=== PATIENT | female | born 2000 | race Caucasian/White ===

== ENCOUNTER 2019-11-05 13:56 | Emergency (ER) | payer OTHER, MEDICAID ==
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
--- NOTE | 2019-11-05 16:34 | US ---
1st trimester obstetrical ultrasound: Multiple real-time images were obtained transabdominally. Comparison: No prior study for current . Dates: LMP: LMP given as 08/30/19, JUNE 06/05/20, gestational age 9 weeks 4 days Current ultrasound: JUNE 06/06/20, gestational age 9 weeks 3 days Single intrauterine gestation is seen. Amniotic fluid volume is normal. Embryo is identified. Yolk sac is present. Very minimal subchorionic hemorrhage is noted. Ovaries are felt to be within normal limits. Cyst is noted within the vaginal canal measuring 2.8 cm in greatest size which is felt to be benign. Measurements: [place]-rump length: 2.62 cm - 9 weeks 3 days Heart rate: 161 bpm Impression: 1. Single intrauterine gestation. Dates as noted above. 2. Minimal subchorionic hemorrhage which will likely be incidental. 3. Vaginal cyst which is believed to be benign. 3. No other complicating process is seen. Diagnostic code #2 This report was dictated in [place] Standard Time
== END 2019-11-05 17:00 | disposition home or self-care (01) ==
LOC: JD.ED 13:56
DX: O41.8X10 Other specified disorders of amniotic fluid and membranes, first trimester, not applicable or unspecified (principal); O46.8X1 Other antepartum hemorrhage, first trimester; Z3A.09 9 weeks gestation of pregnancy; V89.2XXA Person injured in unspecified motor-vehicle accident, traffic, initial encounter
CPT/HCPCS: 36415; 76801; 76801-26; 84702; 85025; 86900; 86901; 99282; 99285-25

== ENCOUNTER 2019-12-01 05:58 | Emergency (ER) | payer MEDICAID ==
--- NOTE | 2019-12-01 06:42 | EDM.PDOC ---
<Adán Dang - Last Filed: 12/01/19 06:56> ED HPI GENERAL MEDICAL PROBLEM - General Chief Complaint: General Stated Complaint: 13 WEEKS PREG BACK PAIN FEVER VOMITTING Time Seen by Provider: 12/01/19 06:30 Source of Information: Reports: Patient History Limitations: Reports: No Limitations - History of Present Illness INITIAL COMMENTS - FREE TEXT/NARRATIVE: This is a 19-year-old female. Onset yesterday around 4 PM with nausea vomiting and diarrhea. She thinks she has had a fever up to 101 as well and some chills. She complains of some nasal congestion and a dry cough and she has a sore throat. She has not gotten a flu shot. She is 13 weeks but she denies any vaginal bleeding or discharge. She also complains of pain in her right flank and lower back that goes down into both of her legs but she has no history of back problems or back injury. Still complains of a headache that is more of a pounding type headache. She has not been eating or drinking much for the last 12 hours. She does have a history of frequent UTIs but she says she does not think she has one. She denies any blood in the vomitus or the stool. The patient's OB doctor is Dr. Samuels. She states that her has had no complications thus far. 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 Denies: Wheezing Cardiovascular: Reports: No Symptoms Endocrine: Reports: No Symptoms GI/Abdominal: Reports: Diarrhea, Nausea, Vomiting, Other (Does have some abdominal cramping with the nausea and vomiting and diarrhea but otherwise no abdominal pain) : Denies: Dysuria, Frequency Musculoskeletal: Reports: Back Pain Skin: Reports: No Symptoms Neurological: Reports: Headache Psychiatric: Reports: No Symptoms Hematologic/Lymphatic: Reports: No Symptoms ED EXAM, GENERAL - Physical Exam Exam: See Below Exam Limited By: No Limitations General Appearance: Alert, WD/WN, No Apparent Distress Eye Exam: Bilateral Eye: Normal Inspection Ears: Normal External Exam, Normal Canal, Normal TMs Nose: Normal Inspection Throat/Mouth: Normal Inspection, Normal Lips, Normal Oropharynx, Normal Voice, No Airway Compromise Head: Normocephalic Neck: Supple, Other (No nuchal rigidity) Respiratory/Chest: No Respiratory Distress, Lungs Clear, Normal Breath Sounds Cardiovascular: Regular Rate, Rhythm, No Murmur, Tachycardia GI/Abdominal: Soft, Other (Sounds are positive but they are decreased, she does not appear to have any tenderness in the suprapubic area or the right or left lower quadrant or upper abdomen. She does complain of some soreness but no severe pain or rebound is elicited) (Female) Exam: Deferred Back Exam: Full Range of Motion, Other (Will to bend forward and lie down with no difficulty, she does complain of some soreness in the right lower back area on palpation but complains of the pain going across her lower back and down her legs across the anterior thighs to the knees. She seems to be very mobile despite this discomfort.) Extremities: Normal Inspection, Normal Range of Motion Neurological: Alert, Oriented Psychiatric: Normal Affect, Normal Mood Skin Exam: Warm, Dry Course - Vital Signs Last Recorded V/S: Last Vital Signs Temp 99.1 F 12/01/19 06:06 Pulse 104 H 12/01/19 06:06 Resp 20 12/01/19 06:06 BP 114/67 12/01/19 06:06 Pulse Ox 100 12/01/19 06:06 - Orders/Labs/Meds Orders: Active Orders 24 hr Category Date Time Status HYDROmorphone [Dilaudid] Med 12/01/19 08:41 Once 0.5 mg IVPUSH ONETIME ONE Sodium Chloride 0.9% [Normal Saline] 1,000 ml Med 12/01/19 06:45 Active IV ASDIRECTED Medication Orders Sodium Chloride (Normal Saline) 1,000 mls @ 1,000 mls/hr IV ASDIRECTED KEITH Last Admin: 12/01/19 06:55 Dose: 1,000 mls/hr Labs: Laboratory Tests 12/01/19 12/01/19 12/01/19 Range/Units 06:53 06:53 06:53 WBC 7.59 (3.98-10.04) K/mm3 RBC 4.00 (3.98-5.22) M/mm3 Hgb 11.7 (11.2-15.7) gm/dl Hct 35.7 (34.1-44.9) % MCV 89.3 (79.4-94.8) fl MCH 29.3 (25.6-32.2) pg MCHC 32.8 (32.2-35.5) g/dl RDW Std Deviation 43.6 (36.4-46.3) fL Plt Count 219 (182-369) K/mm3 MPV 9.0 L (9.4-12.3) fl Neut % (Auto) 82.9 H (34.0-71.1) % Lymph % (Auto) 4.6 L (19.3-51.7) % Richardson % (Auto) 12.0 (4.7-12.5) % Eos % (Auto) 0 L (0.7-5.8) Baso % (Auto) 0.1 (0.1-1.2) % Neut # (Auto) 6.29 H (1.56-6.13) K/mm3 Lymph # (Auto) 0.35 L (1.18-3.74) K/mm3 Richardson # (Auto) 0.91 H (0.24-0.36) K/mm3 Eos # (Auto) 0.00 L (0.04-0.36) K/mm3 Baso # (Auto) 0.01 (0.01-0.08) K/mm3 Manual Slide Review Abnormal smear Sodium 134 L (136-145) mEq/L Potassium 3.8 (3.5-5.1) mEq/L Chloride 102 (98-107) mEq/L Carbon Dioxide 22 (21-32) mEq/L Anion Gap 13.8 (5-15) BUN 5 L (7-18) mg/dL Creatinine 0.6 (0.55-1.02) mg/dL Est Cr Clr Drug Dosing 133.46 mL/min Estimated GFR (MDRD) > 60 (>60) mL/min BUN/Creatinine Ratio 8.3 L (14-18) Glucose 114 H (74-106) mg/dL Calcium 8.9 (8.5-10.1) mg/dL Total Bilirubin 0.3 (0.2-1.0) mg/dL AST 16 (15-37) U/L ALT 26 (14-59) U/L Alkaline Phosphatase 47 (46-116) U/L Total Protein 7.2 (6.4-8.2) g/dl Albumin 3.5 (3.4-5.0) g/dl Globulin 3.7 gm/dL Albumin/Globulin Ratio 1.0 (1-2) Lipase 188 (73-393) U/L HCG, Quant 84208.0 mIU/mL Urine Color Yellow (Yellow) Urine Appearance Clear (Clear) Urine pH 6.0 (5.0-8.0) Ur Specific [place] > or = 1.030 (1.005-1.030) Urine Protein Trace H (Negative) Urine Glucose (UA) Negative (Negative) Urine Ketones 4+ H (Negative) Urine Occult Blood Trace-lysed H (Negative) Urine Nitrite Negative (Negative) Urine Bilirubin Negative (Negative) Urine Urobilinogen 0.2 (0.2-1.0) Ur Leukocyte Esterase Negative (Negative) Urine RBC 0-5 (0-5) /hpf Urine WBC 0-5 (0-5) /hpf Ur Epithelial Cells 5-10 H (0-5) /hpf Urine Bacteria Few (FEW) /hpf Urine Mucus Few (FEW) /hpf Meds: Medications Generic Name Dose Route Start Last Admin Trade Name Freq PRN Reason Stop Dose Admin Sodium Chloride 1,000 mls @ 1,000 mls/hr 12/01/19 06:45 12/01/19 06:55 Normal Saline IV 1,000 mls/hr ASDIRECTED KEITH Administration Discontinued Medications Generic Name Dose Route Start Last Admin Trade Name Freq PRN Reason Stop Dose Admin Ondansetron HCl 4 mg 12/01/19 06:52 12/01/19 06:55 Zofran IVPUSH 12/01/19 06:53 4 mg ONETIME ONE Administration - Re-Assessments/Exams Free Text/Narrative Re-Assessment/Exam: 12/01/19 06:57 The patient's care has been transferred to Dr. Tanner. Departure - Departure Disposition: Home, Self-Care 01 Clinical Impression: Gastroenteritis Qualifiers: Weeks of gestation: 9 weeks Qualified Code(s): Z3A.09 - 9 weeks gestation of Low back pain Qualifiers: Chronicity: acute Back pain laterality: bilateral Sciatica presence: without sciatica Qualified Code(s): M54.5 - Low back pain - Discharge Information Prescriptions: Ondansetron [Zofran ODT] 4 mg PO Q6H PRN #20 tab.dis PRN Reason: Nausea\vomiting Referrals: Alana Mccarthy NP [Primary Care Provider] - 1 Week Forms: ED Department Discharge Additional Instructions: Drink plenty of fluids. Take zofran every 6 hours as needed for nausea and vomiting. Ice your back for 15 minutes 3 times per day for 2 days. Take tylenol as needed for pain. Follow up with your doctor within a week. Please return if you are worse. Sepsis Event Note - Evaluation Sepsis Screening Result: No Definite Risk - Focused Exam Vital Signs: Vital Signs Temp Pulse Resp BP Pulse Ox 12/01/19 06:06 99.1 F 104 H 20 114/67 100 Date Exam was Performed: 12/01/19 Time Exam was Performed: 06:56 - My Orders Last 24 Hours: My Active Orders 12/01/19 08:41 HYDROmorphone [Dilaudid] 0.5 mg IVPUSH ONETIME ONE - Assessment/Plan Last 24 Hours: My Active Orders 12/01/19 08:41 HYDROmorphone [Dilaudid] 0.5 mg IVPUSH ONETIME ONE <Adán Tanner - Last Filed: 12/01/19 08:47> Course - Re-Assessments/Exams Free Text/Narrative Re-Assessment/Exam: 12/01/19 08:[address] Dang. Her CBC and CMP look good. Her lipase was normal. Her HCG was 63,767. Her UA shows no UTI. Her influenza and strep were negative. She still has some back pain. I have ordered dilaudid 0.5mg IV. I will discharge her home. Departure - Departure Time of Disposition: 08:45 Condition: Good - Discharge Information *PRESCRIPTION DRUG MONITORING PROGRAM REVIEWED*: Not Applicable *COPY OF PRESCRIPTION DRUG MONITORING REPORT IN PATIENT JOSUÉ: Not Applicable Sepsis Event Note - Focused Exam Date Exam was Performed: 12/01/19 Time Exam was Performed: 08:41
[2019-12-01] MEDS ORDERED: Sodium Chloride 0.9% 1,000 ML IV SCH (06:45)
[2019-12-01] MEDS ORDERED: Ondansetron 4 MG/2 ML SDV IVPUSH ONE (06:52)
[2019-12-01] MEDS ORDERED: HYDROmorphone 0.5 MG/0.5 ML Syringe IVPUSH ONE (08:41)
== END 2019-12-01 09:40 | disposition home or self-care (01) ==
LOC: JD.ED 05:58
DX: O99.611 Diseases of the digestive system complicating pregnancy, first trimester (principal); K52.9 Noninfective gastroenteritis and colitis, unspecified; O99.89 Other specified diseases and conditions complicating pregnancy, childbirth and the puerperium; M54.5 Low back pain; Z3A.09 9 weeks gestation of pregnancy
CPT/HCPCS: 36415; 80053; 81001; 83690; 84702; 85025; 87081; 87430; 87804; 96361; 96374; 96375; 99284; J1170; J2405; J7030

== ENCOUNTER 2020-05-27 02:29 | Inpatient (IN) | payer MEDICAID ==
[2020-05-27] MEDS ORDERED: Acetaminophen 325 MG Tab PO PRN (02:47)
[2020-05-27] MEDS ORDERED: Lidocaine 1% 50 ML MDV INJECT ONE (02:47)
[2020-05-27] MEDS ORDERED: Calcium Carbonate 500 MG Tab.Chew PO PRN (02:47)
[2020-05-27] MEDS ORDERED: Sodium Chloride 0.9% 10 ML Syringe FLUSH PRN (02:47)
[2020-05-27] MEDS ORDERED: Oxytocin/Lactated Ringers 10 UNIT/1,000 ML BAG IV SCH ×2 (03:00)
[2020-05-27] MEDS ORDERED: diphenhydrAMINE 50 MG/ML SDV IVPUSH PRN (07:24)
[2020-05-27] MEDS ORDERED: fentaNYL 100 MCG/2 ML SDV EPIDUR PRN (07:24)
[2020-05-27] MEDS ORDERED: Bupivacaine/fentaNYL/NS 100 ML Bag EPIDUR PRN (07:24)
[2020-05-27] MEDS ORDERED: ePHEDrine 50 MG/ML SDV IVPUSH PRN (07:24)
--- NOTE | 2020-05-27 09:56 | PCM.LDHP ---
L&D History of Present Illness - General Date of Service: 05/27/20 Admit Problem/Dx: Patient Status Order with Admit Dx/Problem 05/27/20 02:37 Patient Status [ADT] Routine 05/27/20 02:48 Patient Status [ADT] Routine Admission Diagnosis/Problem Admission Diagnosis/Problem Spontaneous rupture of membranes Source of Information: Patient - History of Present Illness Introduction:: Marcie Fulton is a 19-year-old at 38 weeks 5 days (JUNE 06/05/2020) by LMP consistent with a 6-week ultrasound who presents with spontaneous rupture membranes. She reports that around 2 AM on 05/27/2020 she had a large gush of clear fluid with continuous leaking of fluid afterwards. She denies any fevers or chills. She did not have contractions that started right away but several hours after her rupture membranes she felt like she started to have contractions about every 2 to 3 minutes that were lasting for about a minute at a time. She reports that the baby has been moving well. She did have some nausea and vomiting on Tuesday evening but nothing since then. Timing/Duration: Reports: sudden onset (with large gush of clear fluid) Severity: Moderate (contractions every 2-3 minutes) Associated Symptoms: Reports: vaginal fluid. Denies: vaginal bleeding, vaginal discharge Present Illness Comments:: Marcie Fulton is a 19-year-old at 38 weeks 5 days (JUNE 06/05/2020) by LMP consistent with a 6-week ultrasound who presents with spontaneous rupture membranes. She has had routine care with myself, Dr. Samuels, starting at 6 weeks gestational age. Her has been overall uncomplicated. She did not receive Tdap or flu vaccine during this . is complicated by: * Patient with personal history of cleft lip and palate requiring multiple surgeries throughout her life, normal anatomy scan on at around 20 weeks gestational age without any evidence of cleft lip or palate on infant. * Patient declines flu and Tdap vaccine during the labs Blood type: O+ Antibody screen: Negative First trimester hematocrit/hemoglobin: 40.0%/12.9 on 10/15/2019 Platelets: 293 on 10/15/2019 Urine culture: Mixed rei suggestive of contamination Rubella status: Immune Hepatitis B surface antigen: Negative RPR: Negative HIV: Negative Gonorrhea: Negative Chlamydia: Negative Genetic testing: Normal prequel genetic screening testing on 11/21/2019. Negative for trisomy 13, 18 and 21. Normal sex chromosomes. Anatomy ultrasound: Normal anatomy without abnormalities, anterior placenta, no previa, 25th percentile on most recent ultrasound One hour glucose tolerance test: 142 Second trimester hematocrit/hemoglobin: 35.1%/11.3 on 03/19/2020 Platelets: 252 on 03/19/2020 Glucose tolerance test: Fasting 93, 1 hour 177, 2-hour 126, 3-hour 83 GBS status: Negative - Related Data Allergies/Adverse Reactions: Allergies Allergy/AdvReac Type Severity Reaction Status Date / Time No Known Allergies Allergy Verified 04/21/20 08:06 Home Medications: Home Meds Pnv No.95/Ferrous Fum/Folic AC [ Tablet] 1 each PO DAILY 05/11/20 [History] Past Medical History HEENT History: Reports: Other (See Below) Other HEENT History: Cleft lip and palate repair Genitourinary History: Reports: UTI, Recurrent 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: : 1 Para: 0 Psychiatric History: Reports: Depression - Past Surgical History HEENT Surgical History: Reports: Other (See Below) (Cleft lip and palate surgeries as a child) Social & Family History - Family History Family Medical History: Noncontributory - Tobacco Use Smoking Status *Q: Never Smoker Second Hand Smoke Exposure: No - Tobacco Core Measures Tobacco Use/Smoking Within Last 30 Days: No Smokeless Tobacco Use in Last 30 Days: No - Caffeine Use Caffeine Use: Reports: None - Alcohol Use Alcohol Use History: No - Recreational Drug Use Recreational Drug Use: No - Living Situation & Occupation Living situation: Reports: , with Spouse H&P Review of Systems - Review of Systems: Review Of Systems: See Below General: Denies: Fever, Chills, Malaise, Weakness, Fatigue HEENT: Reports: Glasses. Denies: Headaches, Hearing Changes, Rhinitis, Post Nasal Drip, Sinus Congestion, Sore Throat, Visual Changes Pulmonary: Denies: Shortness of Breath, Wheezing, Pleuritic Chest Pain, Cough Cardiovascular: Denies: Chest Pain, Palpitations, Dyspnea on Exertion, Orthopnea Gastrointestinal: Reports: Nausea. Denies: Abdominal Pain, Constipation, Diarrhea, Vomiting Genitourinary: Denies: Dysuria, Frequency, Burning, Pain, Urgency Musculoskeletal: Reports: Back Pain (and hip pain of ) Skin: Denies: Rash, Lesions Psychiatric: Denies: Depression, Anxiety L&D Exam - Exam Exam: See Below - Vital Signs Vital Signs: Last Vital Signs Temp 36.6 C 05/27/20 02:42 Pulse 83 05/27/20 02:42 Resp 18 05/27/20 02:42 BP 133/81 05/27/20 02:42 Pulse Ox 97 05/27/20 02:42 Weight: 82.554 kg - OB Specific Contraction Duration (sec): 60-75 Contraction Frequency (min): 2-6 Contraction Intensity: Moderate Movement: Active Heart Tones: Present Heart Tones per Min: 120 (+15 x 15 accelerations, no decelerations) Heart Rate (FHR) Variability: Moderate (6-25 bmp) Presentation: Vertex Estimated Weight: 6.5-7 pounds by Ruben's - Montelongo Score Montelongo Score Cervix Position: Posterior [place]elongo Score Consistency: Soft [place]ongo Score Effacement: >80% (90%) Montelongo Score Dilation: 3-4 cm (3 cm) Montelongo Score 's Station: -3 Montelongo Score Total: 7 - Exam General: Alert, Oriented, Mild Distress HEENT: Conjunctiva Clear, EOMI Neck: Supple, Trachea Midline Lungs: Clear to Auscultation, Normal Respiratory Effort Cardiovascular: Regular Rate, Regular Rhythm GI/Abdominal Exam: Soft, Non-Tender, No Distention, Other (Gravid). No: Guarding, Rigid, Rebound Genitourinary: Normal external exam Extremities: Normal Inspection, Pedal Edema (1+) Skin: Warm, Dry, Intact Psychiatric: Alert, Normal Affect, Normal Mood - Patient Data Lab Results Last 24 hrs: Laboratory Results - last 24 hr 05/27/20 05/27/20 05/27/20 Range/Units 03:01 03:01 03:20 WBC 11.17 H (3.98-10.04) K/mm3 RBC 3.84 L (3.98-5.22) M/mm3 Hgb 11.5 (11.2-15.7) gm/dl Hct 35.1 (34.1-44.9) % MCV 91.4 (79.4-94.8) fl MCH 29.9 (25.6-32.2) pg MCHC 32.8 (32.2-35.5) g/dl RDW Std Deviation 45.3 (36.4-46.3) fL Plt Count 224 (182-369) K/mm3 MPV 9.5 (9.4-12.3) fl Neut % (Auto) 67.2 (34.0-71.1) % Lymph % (Auto) 21.1 (19.3-51.7) % [place] % (Auto) 10.3 (4.7-12.5) % Eos % (Auto) 0.8 (0.7-5.8) Baso % (Auto) 0.2 (0.1-1.2) % Neut # (Auto) 7.51 H (1.56-6.13) K/mm3 Lymph # (Auto) 2.36 (1.18-3.74) K/mm3 [place] # (Auto) 1.15 H (0.24-0.36) K/mm3 Eos # (Auto) 0.09 (0.04-0.36) K/mm3 Baso # (Auto) 0.02 (0.01-0.08) K/mm3 COVID-19 (PURA) Negative (NEGATIVE) Blood Type O POSITIVE Gel Antibody Screen Negative Result Diagrams: 05/27/20 03:01 - Problem List (1) 38 weeks gestation of SNOMED Code(s): 70272751 ICD Code: Z3A.38 - 38 WEEKS GESTATION OF Status: Acute Current Visit: Yes (2) Cleft lip and cleft palate SNOMED Code(s): 91983547 ICD Code: Q37.9 - UNSPECIFIED CLEFT PALATE WITH UNILATERAL CLEFT LIP Status: Acute Current Visit: Yes Problem List Initiated/Reviewed/Updated: Yes Orders Last 24hrs: Active Orders 24 hr Category Date Time Status Patient Status [ADT] Routine ADT 05/27/20 02:48 Active Activity as Tolerated [RC] PFP Care 05/27/20 02:48 Active Communication Order [RC] ASDIRECTED Care 05/27/20 02:48 Active Communication Order [RC] ASDIRECTED Care 05/27/20 07:25 Active Cooling Warming Measures [RC] ASDIRECTED Care 05/27/20 07:25 Active Heart Tones [RC] ASDIRECTED Care 05/27/20 02:49 Active Non Stress Test [RC] PER UNIT ROUTINE Care 05/27/20 02:37 Active Notify Provider [RC] ASDIRECTED Care 05/27/20 07:25 Active Notify Provider [RC] ASDIRECTED Care 05/27/20 07:25 Active Notify Provider [RC] PFP Care 05/27/20 02:48 Active Notify Provider [RC] PRN Care 05/27/20 02:48 Active Oxygen Therapy [RC] ASDIRECTED Care 05/27/20 07:25 Active Peripheral IV Care [RC] Q2H Care 05/27/20 02:49 Active Pulse Oximetry [RC] ASDIRECTED Care 05/27/20 07:25 Active Pump Management, Intrathecal [RC] ASDIRECTED Care 05/27/20 02:49 Active Urinary Catheter Assessment [RC] ASDIRECTED Care 05/27/20 02:47 Active Vital Signs [RC] PER UNIT ROUTINE Care 05/27/20 02:37 Active Vital Signs [RC] Q1H Care 05/27/20 07:25 Active Regular Diet [DIET] Diet 05/27/20 Breakfast Active RAPID PLASMA REAGIN,RPR [CHEM] Stat Lab 05/27/20 03:01 Received Acetaminophen [TylenoL] Med 05/27/20 02:47 Active 650 mg PO Q4H PRN Bupivacaine/fentaNYL/NS [fentaNYL/Bupivacaine/NS 2 MCG- Med 05/27/20 07:24 Active 0.125% 100 ML] 100 ml EPIDUR ASDIRECTED PRN Calcium Carbonate [Tums] Med 05/27/20 02:47 Active 1,000 mg PO Q2H PRN Lactated Ringers [Ringers, Lactated] 1,000 ml Med 05/27/20 03:00 Active IV ASDIRECTED Nalbuphine [Nubain] Med 05/27/20 02:47 Active 10 mg IVPUSH Q2H PRN Ondansetron [Zofran] Med 05/27/20 02:47 Active 4 mg IVPUSH Q4H PRN Oxytocin/Lactated Ringers [Pitocin in LR 10 Units/1,000 Med 05/27/20 03:00 Active ML] 10 unit in 1,000 ml IV .CONTINUOUS Oxytocin/Lactated Ringers [Pitocin in LR 10 Units/1,000 Med 05/27/20 03:00 Active ML] 10 unit in 1,000 ml IV TITRATE Sodium Chloride 0.9% [Saline Flush] Med 05/27/20 02:47 Active 10 ml FLUSH ASDIRECTED PRN diphenhydrAMINE [Benadryl] Med 05/27/20 07:24 Active 25 mg IVPUSH Q6H PRN ePHEDrine [ePHEDrine sulfate] Med 05/27/20 07:24 Active 5 mg IVPUSH ASDIRECTED PRN fentaNYL [Sublimaze] Med 05/27/20 07:24 Active 100 mcg EPIDUR Q3H PRN Electronic Heart Tones Ext w TOCO [WOMSER] Oth 05/27/20 02:48 Ordered Routine Electronic Heart Tones Internal [WOMSER] Per Unit Oth 05/27/20 02:48 Ordered Routine Peripheral IV Insertion Adult [OM.PC] Routine Oth 05/27/20 02:48 Ordered Resuscitation Status Routine Resus Stat 05/27/20 02:37 Ordered Medication Orders Acetaminophen (Tylenol) 650 mg PO Q4H PRN PRN Reason: Pain (Mild 1-3) and fever Calcium Carbonate/Glycine (Tums) 1,000 mg PO Q2H PRN PRN Reason: Indigestion Diphenhydramine HCl (Benadryl) 25 mg IVPUSH Q6H PRN PRN Reason: pruritis Ephedrine Sulfate (Ephedrine Sulfate) 5 mg IVPUSH ASDIRECTED PRN PRN Reason: Hypotension Fentanyl (Sublimaze) 100 mcg EPIDUR Q3H PRN PRN Reason: Pain Fentanyl/Bupivacaine HCl (Fentanyl/Bupivacaine/Ns 2 Mcg-0.125% 100 Ml) 100 ml EPIDUR ASDIRECTED PRN PRN Reason: Pain Lactated Ringer's (Ringers, Lactated) 1,000 mls @ 100 mls/hr IV ASDIRECTED KEITH Oxytocin/Lactated Ringer's (Pitocin In Lr 10 Units/1,000 Ml) 10 unit in 1,000 mls @ 12 mls/hr IV TITRATE KEITH; Protocol Oxytocin/Lactated Ringer's (Pitocin In Lr 10 Units/1,000 Ml) 10 unit in 1,000 mls @ 500 mls/hr IV .CONTINUOUS KEITH Nalbuphine HCl (Nubain) 10 mg IVPUSH Q2H PRN PRN Reason: Pain Ondansetron HCl (Zofran) 4 mg IVPUSH Q4H PRN PRN Reason: Nausea/Vomiting Sodium Chloride (Saline Flush) 10 ml FLUSH ASDIRECTED PRN PRN Reason: Keep Vein Open Assessment/Plan Comment:: Marcie Fulton is a 19-year-old at 38 weeks 5 days (JUNE 06/05/2020) by LMP consistent with a 6-week ultrasound who presents with spontaneous rupture membranes. Refer to observation for spontaneous rupture of membranes Start Pitocin for augmentation of labor if patient does not have cervical change at next cervical exam around noon Continuous monitoring IV in place. Run lactated Ringer's at 125 mL/h if patient is not tolerating oral fluids. May have small amounts of regular diet Activity as tolerated May have epidural or other anesthesia as desired Plans to breast-feed after delivery Anticipate vaginal delivery unless otherwise indicated Douglas Samuels MD 10:03 AM 05/27/2020
[2020-05-27] MEDS: Ondansetron 4 MG/2 ML SDV IVPUSH PRN ×2 (11:43→16:56)
[2020-05-27] MEDS: Lactated Ringers 1,000 ML IV SCH ×3 (11:43→17:56)
[2020-05-27] MEDS: Nalbuphine 10 MG/ML Syringe IVPUSH PRN ×2 (11:46→17:22)
--- NOTE | 2020-05-27 16:48 | PCM.PNLD ---
Labor Progress Note - VS & Meds Vital Signs: Last Vital Signs Temp 36.6 C 05/27/20 02:42 Pulse 83 05/27/20 02:42 Resp 18 05/27/20 02:42 BP 133/81 05/27/20 02:42 Pulse Ox 97 05/27/20 02:42 Active Medications: Current Medications Acetaminophen (Tylenol) 650 mg PO Q4H PRN PRN Reason: Pain (Mild 1-3) and fever Calcium Carbonate/Glycine (Tums) 1,000 mg PO Q2H PRN PRN Reason: Indigestion Diphenhydramine HCl (Benadryl) 25 mg IVPUSH Q6H PRN PRN Reason: pruritis Ephedrine Sulfate (Ephedrine Sulfate) 5 mg IVPUSH ASDIRECTED PRN PRN Reason: Hypotension Fentanyl (Sublimaze) 100 mcg EPIDUR Q3H PRN PRN Reason: Pain Fentanyl/Bupivacaine HCl (Fentanyl/Bupivacaine/Ns 2 Mcg-0.125% 100 Ml) 100 ml EPIDUR ASDIRECTED PRN PRN Reason: Pain Lactated Ringer's (Ringers, Lactated) 1,000 mls @ 100 mls/hr IV ASDIRECTED KEITH Last Admin: 05/27/20 16:40 Dose: 100 mls/hr Documented by: Oxytocin/Lactated Ringer's (Pitocin In Lr 10 Units/1,000 Ml) 10 unit in 1,000 mls @ 12 mls/hr IV TITRATE KEITH; Protocol Last Titration: 05/27/20 15:50 Dose: 6 munits/min, 36 mls/hr Documented by: Oxytocin/Lactated Ringer's (Pitocin In Lr 10 Units/1,000 Ml) 10 unit in 1,000 mls @ 500 mls/hr IV .CONTINUOUS KEITH Nalbuphine HCl (Nubain) 10 mg IVPUSH Q2H PRN PRN Reason: Pain Last Admin: 05/27/20 11:46 Dose: 10 mg Documented by: Ondansetron HCl (Zofran) 4 mg IVPUSH Q4H PRN PRN Reason: Nausea/Vomiting Last Admin: 05/27/20 11:43 Dose: 4 mg Documented by: Sodium Chloride (Saline Flush) 10 ml FLUSH ASDIRECTED PRN PRN Reason: Keep Vein Open Discontinued Medications Lidocaine HCl (Xylocaine 1%) 20 ml INJECT ONETIME ONE Stop: 05/27/20 02:48 - Uterine Contractions Uterine Monitoring Mode: External [place] Contraction Frequency (min): 4-6 Contraction Duration (sec): 60-75 Contraction Intensity: Moderate to Strong Uterine Resting Tone: Soft - Monitoring Monitor Mode: Doppler/Auscultation Heart Rate (FHR) Baseline: 135 Heart Rate (FHR) Per Doppler: 135 Heart Rate (FHR) Variability: Moderate (6-25 bmp) Accelerations: Present, 15x15 Decelerations: None Strip Review: Category I - Vaginal Exam Dilation (cm): 5 Effacement (Percent): 90 Station: -1 Cervical Position: Midposition Sterile Vaginal Exam Performed By: Douglas Samuels - Labor Progress (Free Text) Labor Progress: Patient making slow progress at this time Continue Pitocin for augmentation of labor Continue to monitor vitals Continuous monitoring Patient may have epidural as desired Anticipate vaginal delivery unless otherwise indicated Douglas Samuels MD 4:47 PM 05/27/2020
--- NOTE | 2020-05-27 19:06 | PCM.PREANE ---
Preanesthetic Assessment - Procedure Proposed Procedure: Labor Epidural - Anesthesia/Transfusion/Family Hx Anesthesia History: Prior Anesthesia Without Reaction Family History of Anesthesia Reaction: No Transfusion History: No Prior Transfusion(s) - Review of Systems General: No Symptoms Pulmonary: No Symptoms Cardiovascular: No Symptoms Gastrointestinal: No Symptoms Neurological: Other (Back Pain) Other: Reports: Anxiety - Physical Assessment Vital Signs: Last Vital Signs Temp 36.6 C 05/27/20 02:42 Pulse 83 05/27/20 02:42 Resp 18 05/27/20 02:42 BP 133/81 05/27/20 02:42 Pulse Ox 97 05/27/20 02:42 Height: 1.65 m Weight: 82.554 kg ASA Class: 2 Mental Status: Alert & Oriented x3 Airway Class: Mallampati = 2 Dentition: Reports: Normal Dentition Thyro-Mental Finger Breadths: 3 Mouth Opening Finger Breadths: 3 ROM/Head Extension: Full Lungs: Clear to Auscultation, Normal Respiratory Effort Cardiovascular: Regular Rate, Regular Rhythm - Lab Values: Laboratory Last Values WBC 11.17 K/mm3 (3.98-10.04) H 05/27/20 03:01 RBC 3.84 M/mm3 (3.98-5.22) L 05/27/20 03:01 Hgb 11.5 gm/dl (11.2-15.7) 05/27/20 03:01 Hct 35.1 % (34.1-44.9) 05/27/20 03:01 MCV 91.4 fl (79.4-94.8) 05/27/20 03:01 MCH 29.9 pg (25.6-32.2) 05/27/20 03:01 MCHC 32.8 g/dl (32.2-35.5) 05/27/20 03:01 RDW Std Deviation 45.3 fL (36.4-46.3) 05/27/20 03:01 Plt Count 224 K/mm3 (182-369) 05/27/20 03:01 MPV 9.5 fl (9.4-12.3) 05/27/20 03:01 Neut % (Auto) 67.2 % (34.0-71.1) 05/27/20 03:01 Lymph % (Auto) 21.1 % (19.3-51.7) 05/27/20 03:01 [place] % (Auto) 10.3 % (4.7-12.5) 05/27/20 03:01 Eos % (Auto) 0.8 (0.7-5.8) 05/27/20 03:01 Baso % (Auto) 0.2 % (0.1-1.2) 05/27/20 03:01 Neut # (Auto) 7.51 K/mm3 (1.56-6.13) H 05/27/20 03:01 Lymph # (Auto) 2.36 K/mm3 (1.18-3.74) 05/27/20 03:01 [place] # (Auto) 1.15 K/mm3 (0.24-0.36) H 05/27/20 03:01 Eos # (Auto) 0.09 K/mm3 (0.04-0.36) 05/27/20 03:01 Baso # (Auto) 0.02 K/mm3 (0.01-0.08) 05/27/20 03:01 COVID-19 (PURA) Negative (NEGATIVE) 05/27/20 03:20 Blood Type O POSITIVE 05/27/20 03:01 Gel Antibody Screen Negative 05/27/20 03:01 - Allergies Allergies/Adverse Reactions: Allergies Allergy/AdvReac Type Severity Reaction Status Date / Time No Known Allergies Allergy Verified 04/21/20 08:06 - Acknowledgements Anesthesia Type Planned: Epidural Pt an Appropriate Candidate for the Planned Anesthesia: Yes Alternatives and Risks of Anesthesia Discussed w Pt/Guardian: Yes Pt/Guardian Understands and Agrees with Anesthesia Plan: Yes PreAnesthesia Questionnaire HEENT History: Reports: Other (See Below) Other HEENT History: Cleft lip and palate repair Genitourinary History: Reports: UTI, Recurrent 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: Psychiatric History: Reports: Depression - Past Surgical History HEENT Surgical History: Reports: Other (See Below) (Cleft lip and palate surgeries as a child) - SUBSTANCE USE Smoking Status *Q: Never Smoker Second Hand Smoke Exposure: No Recreational Drug Use History: No - HOME MEDS Home Medications: Home Meds Pnv No.95/Ferrous Fum/Folic AC [ Tablet] 1 each PO DAILY 05/11/20 [History] - CURRENT (IN HOUSE) MEDS Current Meds: Current Medications Acetaminophen (Tylenol) 650 mg PO Q4H PRN PRN Reason: Pain (Mild 1-3) and fever Calcium Carbonate/Glycine (Tums) 1,000 mg PO Q2H PRN PRN Reason: Indigestion Diphenhydramine HCl (Benadryl) 25 mg IVPUSH Q6H PRN PRN Reason: pruritis Ephedrine Sulfate (Ephedrine Sulfate) 5 mg IVPUSH ASDIRECTED PRN PRN Reason: Hypotension Fentanyl (Sublimaze) 100 mcg EPIDUR Q3H PRN PRN Reason: Pain Last Admin: 05/27/20 17:55 Dose: 100 mcg Documented by: Fentanyl/Bupivacaine HCl (Fentanyl/Bupivacaine/Ns 2 Mcg-0.125% 100 Ml) 100 ml EPIDUR ASDIRECTED PRN PRN Reason: Pain Lactated Ringer's (Ringers, Lactated) 1,000 mls @ 100 mls/hr IV ASDIRECTED KEITH Last Admin: 05/27/20 17:56 Dose: 100 mls/hr Documented by: Oxytocin/Lactated Ringer's (Pitocin In Lr 10 Units/1,000 Ml) 10 unit in 1,000 mls @ 12 mls/hr IV TITRATE KEITH; Protocol Last Titration: 05/27/20 15:50 Dose: 6 munits/min, 36 mls/hr Documented by: Oxytocin/Lactated Ringer's (Pitocin In Lr 10 Units/1,000 Ml) 10 unit in 1,000 mls @ 500 mls/hr IV .CONTINUOUS KEITH Nalbuphine HCl (Nubain) 10 mg IVPUSH Q2H PRN PRN Reason: Pain Last Admin: 05/27/20 17:22 Dose: 10 mg Documented by: Ondansetron HCl (Zofran) 4 mg IVPUSH Q4H PRN PRN Reason: Nausea/Vomiting Last Admin: 05/27/20 16:56 Dose: 4 mg Documented by: Sodium Chloride (Saline Flush) 10 ml FLUSH ASDIRECTED PRN PRN Reason: Keep Vein Open Discontinued Medications Lidocaine HCl (Xylocaine 1%) 20 ml INJECT ONETIME ONE Stop: 05/27/20 02:48
[2020-05-28] MEDS ORDERED: Bupivacaine 0.25% 10 ML SDV ONE
--- NOTE | 2020-05-28 01:19 | PCM.DEL ---
L & D Note - General Info Date of Service: 05/28/20 Mother's Due Date: 06/05/20 - Delivery Note Labor: Spontaneous, Augmented by Oxytocin Delivery Outcome: Livebirth Infant Delivery Method: Spontaneous Vaginal Delivery-Single Presentation: Right Occiput Anterior (YAEL) Nuchal Cord: Present (and not reduced prior to delivery) Anesthesia Type: Epidural Amniotic Fluid Description: Clear Episiotomy Type: None Laceration: 2nd Degree (midline perineal, repaired with 3-0 Vicryl) Suture type: Vicryl Suture size: 3-0 Placenta: Intact, Spontaneous Cord: 3 Vessels Estimated Blood Loss: 350 Resuscitation Needed: No [place]: Bulb Syringe, Stimulated, Warmed, [place] Used Provider: Douglas Samuels Score 1 min: 8 Score 5 min: 9 Second Stage Interventions: Reports: Pushing Effectively, Pushing, Stirrups/Leg Supports Delivery Comments (Free Text/Narrative):: Stage I: Marcie Fulton was admitted for spontaneous rupture of membranes. On ad mission her cervix was dilated to 1 to 2 cm. She was GBS negative. She had a large gush of fluid prior to admission at around 2 AM on 05/27/2020. She started to have contractions on her own several hours after rupture membranes and made slow progress throughout the morning. She had made several centimeters of progress by mid morning of hospital day #1 and was started on Pitocin for augmentation of labor. She was given an epidural for anesthesia. She progressed to complete and pushing. Stage II: On 05/28/2020 she had a normal vaginal delivery of a live female at 00:41. Apgars of 8 & 9. Weight of 3050 g (6 Lbs 11.6 oz). Length of 20 inches. There was a single nuchal cord that was not reduced prior to delivery. Infant was delivered in YAEL position. The cord was doubly clamped and cut by father the infant. Infant was placed on mother's abdomen. Stage III: She had a spontaneous delivery of an intact placenta in [place] presentation. Three vessel cord. She was given pitocin and fundal massage. She is having some additional bleeding and noted to have a full bladder. The urethra was cleaned with iodine swab x3 and the bladder drained with straight catheterization. A total of 100 mL of urine was drained. She had a second- degree midline perineal laceration that was repaired with 3-0 Vicryl. Mom and baby were stable to recovery. EBL of 350 mL. Douglas Samuels MD 1:18 AM 05/28/2020 - General Info Date of Service: 05/28/20 - Patient Data Vitals - Most Recent: Last Vital Signs Temp 36.6 C 05/27/20 02:42 Pulse 83 05/27/20 02:42 Resp 18 05/27/20 02:42 BP 133/81 05/27/20 02:42 Pulse Ox 97 05/27/20 02:42 Weight - Most Recent: 82.554 kg I&O - Last 24 Hours: Intake & Output 05/27/20 05/27/20 05/28/20 14:59 22:59 06:59 Intake Total 1999 Balance 1999 Lab Results Last 24 Hours: Laboratory Results - last 24 hr 05/27/20 05/27/20 05/27/20 Range/Units 03:01 03:01 03:01 WBC 11.17 H (3.98-10.04) K/mm3 RBC 3.84 L (3.98-5.22) M/mm3 Hgb 11.5 (11.2-15.7) gm/dl Hct 35.1 (34.1-44.9) % MCV 91.4 (79.4-94.8) fl MCH 29.9 (25.6-32.2) pg MCHC 32.8 (32.2-35.5) g/dl RDW Std Deviation 45.3 (36.4-46.3) fL Plt Count 224 (182-369) K/mm3 MPV 9.5 (9.4-12.3) fl Neut % (Auto) 67.2 (34.0-71.1) % Lymph % (Auto) 21.1 (19.3-51.7) % [place] % (Auto) 10.3 (4.7-12.5) % Eos % (Auto) 0.8 (0.7-5.8) Baso % (Auto) 0.2 (0.1-1.2) % Neut # (Auto) 7.51 H (1.56-6.13) K/mm3 Lymph # (Auto) 2.36 (1.18-3.74) K/mm3 [place] # (Auto) 1.15 H (0.24-0.36) K/mm3 Eos # (Auto) 0.09 (0.04-0.36) K/mm3 Baso # (Auto) 0.02 (0.01-0.08) K/mm3 RPR Non-reactive (NONREACTIVE) COVID-19 (PURA) (NEGATIVE) Blood Type O POSITIVE Gel Antibody Screen Negative 05/27/20 Range/Units 03:20 WBC (3.98-10.04) K/mm3 RBC (3.98-5.22) M/mm3 Hgb (11.2-15.7) gm/dl Hct (34.1-44.9) % MCV (79.4-94.8) fl MCH (25.6-32.2) pg MCHC (32.2-35.5) g/dl RDW Std Deviation (36.4-46.3) fL Plt Count (182-369) K/mm3 MPV (9.4-12.3) fl Neut % (Auto) (34.0-71.1) % Lymph % (Auto) (19.3-51.7) % [place] % (Auto) (4.7-12.5) % Eos % (Auto) (0.7-5.8) Baso % (Auto) (0.1-1.2) % Neut # (Auto) (1.56-6.13) K/mm3 Lymph # (Auto) (1.18-3.74) K/mm3 [place] # (Auto) (0.24-0.36) K/mm3 Eos # (Auto) (0.04-0.36) K/mm3 Baso # (Auto) (0.01-0.08) K/mm3 RPR (NONREACTIVE) COVID-19 (PURA) Negative (NEGATIVE) Blood Type Gel Antibody Screen Med Orders - Current: Current Medications Acetaminophen (Tylenol) 650 mg PO Q4H PRN PRN Reason: Pain (Mild 1-3) and fever Calcium Carbonate/Glycine (Tums) 1,000 mg PO Q2H PRN PRN Reason: Indigestion Diphenhydramine HCl (Benadryl) 25 mg IVPUSH Q6H PRN PRN Reason: pruritis Ephedrine Sulfate (Ephedrine Sulfate) 5 mg IVPUSH ASDIRECTED PRN PRN Reason: Hypotension Fentanyl (Sublimaze) 100 mcg EPIDUR Q3H PRN PRN Reason: Pain Last Admin: 05/27/20 17:55 Dose: 100 mcg Documented by: Fentanyl/Bupivacaine HCl (Fentanyl/Bupivacaine/Ns 2 Mcg-0.125% 100 Ml) 100 ml EPIDUR ASDIRECTED PRN PRN Reason: Pain Lactated Ringer's (Ringers, Lactated) 1,000 mls @ 100 mls/hr IV ASDIRECTED KEITH Last Admin: 05/27/20 17:56 Dose: 100 mls/hr Documented by: Oxytocin/Lactated Ringer's (Pitocin In Lr 10 Units/1,000 Ml) 10 unit in 1,000 mls @ 12 mls/hr IV TITRATE KEITH; Protocol Last Titration: 05/27/20 22:15 Dose: 8 munits/min, 48 mls/hr Documented by: Oxytocin/Lactated Ringer's (Pitocin In Lr 10 Units/1,000 Ml) 10 unit in 1,000 mls @ 500 mls/hr IV .CONTINUOUS KEITH Nalbuphine HCl (Nubain) 10 mg IVPUSH Q2H PRN PRN Reason: Pain Last Admin: 05/27/20 17:22 Dose: 10 mg Documented by: Ondansetron HCl (Zofran) 4 mg IVPUSH Q4H PRN PRN Reason: Nausea/Vomiting Last Admin: 05/27/20 16:56 Dose: 4 mg Documented by: Sodium Chloride (Saline Flush) 10 ml FLUSH ASDIRECTED PRN PRN Reason: Keep Vein Open Discontinued Medications Lidocaine HCl (Xylocaine 1%) 20 ml INJECT ONETIME ONE Stop: 05/27/20 02:48 Last Admin: 05/27/20 19:36 Dose: Not Given Documented by: - Problem List & Annotations (1) 38 weeks gestation of SNOMED Code(s): 94688191 Code(s): Z3A.38 - 38 WEEKS GESTATION OF Status: Acute Current Visit: Yes (2) Cleft lip and cleft palate SNOMED Code(s): 52979169 Code(s): Q37.9 - UNSPECIFIED CLEFT PALATE WITH UNILATERAL CLEFT LIP Status: Acute Current Visit: Yes (3) Vaginal delivery SNOMED Code(s): 806056261 Code(s): O80 - ENCOUNTER FOR FULL-TERM UNCOMPLICATED DELIVERY Status: Acute Current Visit: Yes (4) Second degree perineal laceration during delivery SNOMED Code(s): 0870772 Code(s): O70.1 - SECOND DEGREE PERINEAL LACERATION DURING DELIVERY Status: Acute Current Visit: Yes - Problem List Review Problem List Initiated/Reviewed/Updated: Yes - My Orders Last 24 Hours: My Active Orders 05/27/20 02:37 Vital Signs [RC] 09,15,21,03 Resuscitation Status Routine 05/27/20 02:47 Urinary Catheter Assessment [RC] ASDIRECTED Acetaminophen [TylenoL] 650 mg PO Q4H PRN Calcium Carbonate [Tums] 1,000 mg PO Q2H PRN Nalbuphine [Nubain] 10 mg IVPUSH Q2H PRN Ondansetron [Zofran] 4 mg IVPUSH Q4H PRN Sodium Chloride 0.9% [Saline Flush] 10 ml FLUSH ASDIRECTED PRN 05/27/20 02:48 Patient Status [ADT] Routine Activity as Tolerated [RC] PFP Communication Order [RC] ASDIRECTED Notify Provider [RC] PFP Notify Provider [RC] PRN Electronic Heart Tones Ext w TOCO [WOMSER] Routine Electronic Heart Tones Internal [WOMSER] Per Unit Routine Peripheral IV Insertion Adult [OM.PC] Routine 05/27/20 02:49 Peripheral IV Care [RC] . DIRECTED Pump Management, Intrathecal [RC] ASDIRECTED 05/27/20 03:00 Lactated Ringers [Ringers, Lactated] 1,000 ml IV ASDIRECTED Oxytocin/Lactated Ringers [Pitocin in LR 10 Units/1,000 ML] 10 unit in 1,000 ml IV .CONTINUOUS Oxytocin/Lactated Ringers [Pitocin in LR 10 Units/1,000 ML] 10 unit in 1,000 ml IV TITRATE 05/27/20 Breakfast Regular Diet [DIET] - Plan Plan:: Marcie Fulton is a 19-year-old now -0-0-1 status post normal spontaneous vaginal delivery with a second-degree midline perineal laceration complicated by personal history of cleft lip and palate Admit to inpatient following normal spontaneous vaginal delivery Continue Pitocin per unit protocol following delivery of placenta and lactated Ringer's until tolerating regular diet Regular diet Vitals per unit routine Ibuprofen and Tylenol for pain control Assist with breast-feeding as needed Continue to monitor lochia Anticipate discharge home on day #2 Douglas Samuels MD 1:18 AM 05/28/2020
[2020-05-28] MEDS ORDERED: Witch Hazel Medicated Pads 40/Jar TOP PRN (01:34)
[2020-05-28] MEDS ORDERED: Oxytocin/Lactated Ringers 10 UNIT/1,000 ML BAG IV SCH (01:34)
[2020-05-28] MEDS ORDERED: Magnesium Hydroxide 400 MG/5 ML Susp 30 ML Cup PO PRN (01:34)
[2020-05-28] MEDS ORDERED: Benzocaine/Menthol 20%-0.5% Spray 56 GM Canister TOP PRN (01:34)
[2020-05-28] MEDS ORDERED: Hydrocortisone Acetate 25 MG Supp RECTAL PRN (01:34)
[2020-05-28] MEDS: Ibuprofen 600 MG Tab PO PRN (01:52)
[2020-05-28] MEDS: Docusate Sodium 100 MG Cap PO PRN ×2 (01:52→19:46)
[2020-05-28] MEDS: Acetaminophen 325 MG Tab PO PRN ×2 (01:53→19:45)
[2020-05-28] MEDS ORDERED: Prenatal Multivitamin with Calcium/Folic Acid/Iron Tab PO SCH (09:00)
[2020-05-29] MEDS: Ibuprofen 600 MG Tab PO PRN (02:13)
--- NOTE | 2020-05-29 06:32 | PCM48HPAN ---
Post Anesthesia Note - EVALUATION WITHIN 48HRS OF ANESTHETIC Vital Signs in Normal Range: Yes Patient Participated in Evaluation: Yes Respiratory Function Stable: Yes Airway Patent: Yes Cardiovascular Function Stable: Yes Hydration Status Stable: Yes Pain Control Satisfactory: Yes Nausea and Vomiting Control Satisfactory: Yes Mental Status Recovered: Yes Vital Signs: Last Vital Signs Temp 36.8 C 05/29/20 03:09 Pulse 70 05/29/20 03:09 Resp 14 05/29/20 03:09 BP 99/57 L 05/29/20 03:09 Pulse Ox 97 05/29/20 03:09
--- NOTE | 2020-05-29 09:27 | PCM.SN.2 ---
- Free Text/Narrative Note: Post Progress Note PPD #1 Subjective: Doing well overall. Ambulating without difficulty. Lochia minimal. Voiding without difficulty. Tolerating regular diet without nausea or vomiting. Pain minimal and improving from yesterday. Reports that she is having some difficulty with increased pain after sitting up in the bed and first walking but improves after increased amount of activity. It is able to be controlled with oral medications. Breast-feeding with minimal difficulty. Objective: Vitals: Vital Signs - 24 hr 05/28/20 05/28/20 05/29/20 14:56 19:42 03:09 Temperature 36.3 C 36.7 C 36.8 C Pulse, 73 77 70 Peripheral Respiratory 15 16 14 Rate Blood Pressure 108/69 123/73 99/57 L O2 Sat by Pulse 98 99 97 Oximetry Physical Exam General: Alert and oriented, no acute distress Lungs: Clear to auscultation bilaterally Heart: Regular rate and rhythm Abdomen: Soft, minimal appropriate tenderness, non-distended, fundus midline, nontender, and 1 fingerbreadth below the umbilicus Extremities: Trace edema bilateral lower extremities to mid shins Laboratory Tests 05/27/20 05/27/20 05/27/20 Range/Units 03:01 03:01 03:01 WBC 11.17 H (3.98-10.04) K/mm3 RBC 3.84 L (3.98-5.22) M/mm3 Hgb 11.5 (11.2-15.7) gm/dl Hct 35.1 (34.1-44.9) % MCV 91.4 (79.4-94.8) fl MCH 29.9 (25.6-32.2) pg MCHC 32.8 (32.2-35.5) g/dl RDW Std Deviation 45.3 (36.4-46.3) fL Plt Count 224 (182-369) K/mm3 MPV 9.5 (9.4-12.3) fl Neut % (Auto) 67.2 (34.0-71.1) % Lymph % (Auto) 21.1 (19.3-51.7) % [place] % (Auto) 10.3 (4.7-12.5) % Eos % (Auto) 0.8 (0.7-5.8) Baso % (Auto) 0.2 (0.1-1.2) % Neut # (Auto) 7.51 H (1.56-6.13) K/mm3 Lymph # (Auto) 2.36 (1.18-3.74) K/mm3 [place] # (Auto) 1.15 H (0.24-0.36) K/mm3 Eos # (Auto) 0.09 (0.04-0.36) K/mm3 Baso # (Auto) 0.02 (0.01-0.08) K/mm3 RPR Non-reactive (NONREACTIVE) COVID-19 (PURA) (NEGATIVE) Blood Type O POSITIVE Gel Antibody Screen Negative 05/27/20 Range/Units 03:20 WBC (3.98-10.04) K/mm3 RBC (3.98-5.22) M/mm3 Hgb (11.2-15.7) gm/dl Hct (34.1-44.9) % MCV (79.4-94.8) fl MCH (25.6-32.2) pg MCHC (32.2-35.5) g/dl RDW Std Deviation (36.4-46.3) fL Plt Count (182-369) K/mm3 MPV (9.4-12.3) fl Neut % (Auto) (34.0-71.1) % Lymph % (Auto) (19.3-51.7) % [place] % (Auto) (4.7-12.5) % Eos % (Auto) (0.7-5.8) Baso % (Auto) (0.1-1.2) % Neut # (Auto) (1.56-6.13) K/mm3 Lymph # (Auto) (1.18-3.74) K/mm3 [place] # (Auto) (0.24-0.36) K/mm3 Eos # (Auto) (0.04-0.36) K/mm3 Baso # (Auto) (0.01-0.08) K/mm3 RPR (NONREACTIVE) COVID-19 (PURA) Negative (NEGATIVE) Blood Type Gel Antibody Screen ASSESSMENT: 19-year-old female -0-0-1 s/p normal vaginal delivery PPD #1, complicated by personal history of cleft lip and palate PLAN: Doing well Breast-feeding with minimal difficulty. Assist as needed Lochia minimal. Continue to monitor for appropriate lochia. Continue routine care Anticipate discharge home today unless is kept for additional monitoring Douglas Samuels MD 9:26 AM 05/29/2020
--- NOTE | 2020-05-29 09:30 | PCM.DCSUM1 ---
Discharge Summary - Hospital Course Free Text/Narrative:: - General Info Date of Service: 05/28/20 Mother's Due Date: 06/05/20 - Delivery Note Labor: Spontaneous, Augmented by Oxytocin Delivery Outcome: Livebirth Infant Delivery Method: Spontaneous Vaginal Delivery-Single Presentation: Right Occiput Anterior (YAEL) Nuchal Cord: Present (and not reduced prior to delivery) Anesthesia Type: Epidural Amniotic Fluid Description: Clear Episiotomy Type: None Laceration: 2nd Degree (midline perineal, repaired with 3-0 Vicryl) Suture type: Vicryl Suture size: 3-0 Placenta: Intact, Spontaneous Cord: 3 Vessels Estimated Blood Loss: 350 Resuscitation Needed: No [place]: Bulb Syringe, Stimulated, Warmed, [place] Used Provider: Douglas Samuels Score 1 min: 8 Score 5 min: 9 Second Stage Interventions: Reports: Pushing Effectively, Pushing, Stirrups/Leg Supports Delivery Comments (Free Text/Narrative):: Stage I: Marcie Fulton was admitted for spontaneous rupture of membranes. On admission her cervix was dilated to 1 to 2 cm. She was GBS negative. She had a large gush of fluid prior to admission at around 2 AM on 05/27/2020. She started to have contractions on her own several hours after rupture membranes and made slow progress throughout the morning. She had made several centimeters of progress by mid morning of hospital day #1 and was started on Pitocin for augmentation of labor. She was given an epidural for anesthesia. She progressed to complete and pushing. Stage II: On 05/28/2020 she had a normal vaginal delivery of a live female infant at 00:41. Apgars of 8 & 9. Weight of 3050 g (6 Lbs 11.6 oz). Length of 20 inches. There was a single nuchal cord that was not reduced prior to delivery. was delivered in YAEL position. The cord was doubly clamped and cut by father the . Infant was placed on mother's abdomen. Stage III: She had a spontaneous delivery of an intact placenta in [place] presentation. Three vessel cord. She was given pitocin and fundal massage. She is having some additional bleeding and noted to have a full bladder. The urethra was cleaned with iodine swab x3 and the bladder drained with straight catheterization. A total of 100 mL of urine was drained. She had a second- degree midline perineal laceration that was repaired with 3-0 Vicryl. Mom and baby were stable to recovery. EBL of 350 mL. HPI Initial Comments: - General Info Date of Service: 05/28/20 Mother's Due Date: 06/05/20 - Delivery Note Labor: Spontaneous, Augmented by Oxytocin Delivery Outcome: Livebirth Infant Delivery Method: Spontaneous Vaginal Delivery-Single Presentation: Right Occiput Anterior (YAEL) Nuchal Cord: Present (and not reduced prior to delivery) Anesthesia Type: Epidural Amniotic Fluid Description: Clear Episiotomy Type: None Laceration: 2nd Degree (midline perineal, repaired with 3-0 Vicryl) Suture type: Vicryl Suture size: 3-0 Placenta: Intact, Spontaneous Cord: 3 Vessels Estimated Blood Loss: 350 Resuscitation Needed: No [place]: Bulb Syringe, Stimulated, Warmed, [place] Used Provider: Douglas Samuels Score 1 min: 8 Score 5 min: 9 Second Stage Interventions: Reports: Pushing Effectively, Pushing, Stirrups/Leg Supports Delivery Comments (Free Text/Narrative):: Stage I: Marcie Fulton was admitted for spontaneous rupture of membranes. On admission her cervix was dilated to 1 to 2 cm. She was GBS negative. She had a large gush of fluid prior to admission at around 2 AM on 05/27/2020. She started to have contractions on her own several hours after rupture membranes and made slow progress throughout the morning. She had made several centimeters of progress by mid morning of hospital day #1 and was started on Pitocin for augmentation of labor. She was given an epidural for anesthesia. She progressed to complete and pushing. Stage II: On 05/28/2020 she had a normal vaginal delivery of a live female infant at 00:41. Apgars of 8 & 9. Weight of 3050 g (6 Lbs 11.6 oz). Length of 20 inches. There was a single nuchal cord that was not reduced prior to delivery. was delivered in YAEL position. The cord was doubly clamped and cut by father the infant. Infant was placed on mother's abdomen. Stage III: She had a spontaneous delivery of an intact placenta in [place] presentation. Three vessel cord. She was given pitocin and fundal massage. She is having some additional bleeding and noted to have a full bladder. The urethra was cleaned with iodine swab x3 and the bladder drained with straight catheterization. A total of 100 mL of urine was drained. She had a second- degree midline perineal laceration that was repaired with 3-0 Vicryl. Mom and baby were stable to recovery. EBL of 350 mL. Brief History: - General Info. Date of Service: 05/28/20. Mother's Due Date: 06/05/20. - Delivery Note. Labor: Spontaneous, Augmented by Oxytocin. Delivery Outcome: Livebirth. Delivery Method: Spontaneous Vaginal Delivery-Single. Presentation: Right Occiput Anterior (YAEL). Nuchal Cord: Present (and not reduced prior to delivery). Anesthesia Type: Epidural. Amniotic Fluid Description: Clear. Episiotomy Type: None. Laceration: 2nd Degree (midline perineal, repaired with 3-0 Vicryl). Suture type: Vicryl. Suture size: 3-0. Placenta: Intact, Spontaneous. Cord: 3 Vessels. Estimated Blood Loss: 350. Resuscitation Needed: No. : Bulb Syringe, Stimulated, Warmed, [place] Used. Provider: Douglas Samuels. Score 1 min: 8. Score 5 min: 9. Second Stage Interventions: Reports: Pushing Effectively, Pushing, Stirrups/Leg Supports. Delivery Comments (Free Text/Narrative):: Stage I: Marcie Fulton was admitted for spontaneous rupture of membranes. On admission her cervix was dilated to 1 to 2 cm. She was GBS negative. She had a large gush of fluid prior to admission at around 2 AM on 05/27/2020. She started to have contractions on her own several hours after rupture membranes and made slow progress throughout the morning. She had made several centimeters of progress by mid morning of hospital day #1 and was started on Pitocin for augmentation of labor. She was given an epidural for anesthesia. She progressed to complete and pushing. Stage II: On 05/28/2020 she had a normal vaginal delivery of a live female infant at 00:41. Apgars of 8 & 9. Weight of 3050 g (6 Lbs 11.6 oz). Length of 20 inches. There was a single nuchal cord that was not reduced prior to delivery. was delivered in YAEL position. The cord was doubly clamped and cut by father the . Infant was placed on mother's abdomen. Stage III: She had a spontaneous delivery of an intact placenta in [place] presentation. Three vessel cord. She was given pitocin and fundal massage. She is having some additional bleeding and noted to have a full bladder. The urethra was cleaned with iodine swab x3 and the bladder drained with straight catheterization. A total of 100 mL of urine was drained. She had a second-degree midline perineal laceration that was repaired with 3-0 Vicryl. Mom and baby were stable to recovery. EBL of 350 mL. Diagnosis: Stroke: No - Discharge Data Discharge Date: 05/29/20 Discharge Disposition: Home, Self-Care 01 Condition: Good - Referral to Home Health Primary Care Physician: Douglas Samuels MD - Discharge Diagnosis/Problem(s) (1) 38 weeks gestation of SNOMED Code(s): 80921581 ICD Code: Z3A.38 - 38 WEEKS GESTATION OF Status: Acute Current Visit: Yes (2) Cleft lip and cleft palate SNOMED Code(s): 86524859 ICD Code: Q37.9 - UNSPECIFIED CLEFT PALATE WITH UNILATERAL CLEFT LIP Status: Acute Current Visit: Yes (3) Vaginal delivery SNOMED Code(s): 253588799 ICD Code: O80 - ENCOUNTER FOR FULL-TERM UNCOMPLICATED DELIVERY Status: Acute Current Visit: Yes (4) Second degree perineal laceration during delivery SNOMED Code(s): 9405994 ICD Code: O70.1 - SECOND DEGREE PERINEAL LACERATION DURING DELIVERY Status: Acute Current Visit: Yes - Patient Summary/Data Complications: None Consults: None Hospital Course: Marcie Fulton was admitted for spontaneous rupture membranes with clear fluid. On admission her cervix was dilated to 1-2 cm. She was GBS negative. She was given pitocin for augmentation. She was given an epidural for anesthesia. She progressed to complete and began pushing. On 05/28/2020 she had a normal vaginal delivery of a live female at 00:41. Apgars of 8 and 9. Weight of 3050 g (6 pounds 11.6 ounces). Her course was uneventful. Her pain was well controlled and she had minimal lochia. She was ambulating, tolerating a regular diet and voiding normally. She was breast-feeding with minimal difficulty. She was afebrile and her hematocrit was 35.1 on admission. She desired to be discharged home on the morning of PPD #1. Her blood type is O+. - Patient Instructions Diet: Regular Diet as Tolerated Activity: Apply Ice, As Tolerated Activity, Other: Nothing in the vagina for 6 weeks Driving: May Drive Today Showering/Bathing: May Shower Notify Provider of: Fever, Increased Pain, Swelling and Redness, Drainage, Nausea and/or Vomiting Other/Special Instructions: Please contact your physician's office if you have heavy vaginal bleeding enough to soak a pad in less than an hour for several hours. Monitor for any signs of an infection in the breasts with severe pain or redness of the breast. - Discharge Plan *PRESCRIPTION DRUG MONITORING PROGRAM REVIEWED*: Not Applicable *COPY OF PRESCRIPTION DRUG MONITORING REPORT IN PATIENT JOSUÉ: Not Applicable Prescriptions/Med Rec: FLUoxetine [PROzac] 20 mg PO DAILY #90 cap Home Medications: Home Meds Pnv No.95/Ferrous Fum/Folic AC [ Tablet] 1 each PO DAILY 05/11/20 [History] Acetaminophen [Tylenol] 650 mg PO Q6H PRN tablet 05/29/20 [Rx] Benzocaine/Menthol [Dermoplast [employer] [place]] 1 spray TOP ASDIRECTED PRN canister 05/29/20 [Rx] Docusate Sodium [Colace] 100 mg PO BID PRN cap 05/29/20 [Rx] FLUoxetine [PROzac] 20 mg PO DAILY #90 cap 05/29/20 [Rx] Hydrocortisone Acetate [Anucort-HC] 25 mg RECTAL BID PRN supp 05/29/20 [Rx] Ibuprofen [Motrin] 600 mg PO Q6H PRN tablet 05/29/20 [Rx] witch Hakeem [Tucks] 1 pad TOP ASDIRECTED PRN pad 05/29/20 [Rx] Patient Handouts: Care of a Perineal Tear, Care After Vaginal Delivery Referrals: Douglas Samuels MD [Primary Care Provider] - (Follow-up in 2 to 3 weeks for routine visit or earlier as needed.) - Discharge Summary/Plan Comment DC Time >30 min.: No - Patient Data Vitals - Most Recent: Last Vital Signs Temp 36.8 C 05/29/20 03:09 Pulse 70 05/29/20 03:09 Resp 14 05/29/20 03:09 BP 99/57 L 05/29/20 03:09 Pulse Ox 97 05/29/20 03:09 Weight - Most Recent: 82.554 kg I&O - Last 24 hours: Intake & Output 05/28/20 05/29/20 05/29/20 22:59 06:59 14:59 Intake Total 180 Balance 180 Med Orders - Current: Current Medications Acetaminophen (Tylenol) 650 mg PO Q6H PRN PRN Reason: mild pain or fever Last Admin: 05/28/20 19:45 Dose: 650 mg Documented by: Benzocaine/Menthol (Dermoplast [employer] [place]) 0 gm TOP ASDIRECTED PRN PRN Reason: Perineal Comfort Measure Last Admin: 05/28/20 01:54 Dose: 1 canister Documented by: Docusate Sodium (Colace) 100 mg PO BID PRN PRN Reason: Constipation Last Admin: 05/28/20 19:46 Dose: 100 mg Documented by: Hydrocortisone Acetate (Anucort-Hc) 25 mg RECTAL BID PRN PRN Reason: Hemorrhoid pain Oxytocin/Lactated Ringer's (Pitocin In Lr 10 Units/1,000 Ml) 10 unit in 1,000 mls @ 100 mls/hr IV TITRATE KEITH; Protocol Ibuprofen (Motrin) 600 mg PO Q6H PRN PRN Reason: Mild pain or fever Last Admin: 05/29/20 02:13 Dose: 600 mg Documented by: Magnesium Hydroxide (Milk Of Magnesia) 30 ml PO BEDTIME PRN PRN Reason: Constipation Prenat Multivit/[employer]/Iron/Folic Ac ( Plus Iron) 1 each PO DAILY KEITH Chandrakant Sebastian (Meg) 1 pad TOP ASDIRECTED PRN PRN Reason: Perineal Comfort Measure Last Admin: 05/28/20 01:53 Dose: 1 container Documented by: Discontinued Medications Acetaminophen (Tylenol) 650 mg PO Q4H PRN PRN Reason: Pain (Mild 1-3) and fever Bupivacaine HCl (Sensorcaine-Mpf 0.25%) 10 ml .ROUTE .STK-MED ONE Stop: 05/28/20 00:01 Calcium Carbonate/Glycine (Tums) 1,000 mg PO Q2H PRN PRN Reason: Indigestion Diphenhydramine HCl (Benadryl) 25 mg IVPUSH Q6H PRN PRN Reason: pruritis Ephedrine Sulfate (Ephedrine Sulfate) 5 mg IVPUSH ASDIRECTED PRN PRN Reason: Hypotension Fentanyl (Sublimaze) 100 mcg EPIDUR Q3H PRN PRN Reason: Pain Last Admin: 05/27/20 17:55 Dose: 100 mcg Documented by: Fentanyl/Bupivacaine HCl (Fentanyl/Bupivacaine/Ns 2 Mcg-0.125% 100 Ml) 100 ml EPIDUR ASDIRECTED PRN PRN Reason: Pain Lactated Ringer's (Ringers, Lactated) 1,000 mls @ 100 mls/hr IV ASDIRECTED KEITH Last Admin: 05/27/20 17:56 Dose: 100 mls/hr Documented by: Oxytocin/Lactated Ringer's (Pitocin In Lr 10 Units/1,000 Ml) 10 unit in 1,000 mls @ 12 mls/hr IV TITRATE KEITH; Protocol Last Titration: 05/27/20 22:15 Dose: 8 munits/min, 48 mls/hr Documented by: Oxytocin/Lactated Ringer's (Pitocin In Lr 10 Units/1,000 Ml) 10 unit in 1,000 mls @ 500 mls/hr IV .CONTINUOUS KEITH Lidocaine HCl (Xylocaine 1%) 20 ml INJECT ONETIME ONE Stop: 05/27/20 02:48 Last Admin: 05/27/20 19:36 Dose: Not Given Documented by: Nalbuphine HCl (Nubain) 10 mg IVPUSH Q2H PRN PRN Reason: Pain Last Admin: 05/27/20 17:22 Dose: 10 mg Documented by: Ondansetron HCl (Zofran) 4 mg IVPUSH Q4H PRN PRN Reason: Nausea/Vomiting Last Admin: 05/27/20 16:56 Dose: 4 mg Documented by: Sodium Chloride (Saline Flush) 10 ml FLUSH ASDIRECTED PRN PRN Reason: Keep Vein Open
== END 2020-05-29 17:30 | disposition home or self-care (01) | DRG 807 ==
LOC: JD.OBCHECK 02:29 → JD.OB 03:19 → UNDOADMOB 03:19 → INTOOBSV 05-28 00:41 → JD.OB 05-28 00:41 → OBSVTOIN 05-28 00:41 → JD.OB 05-28 00:42 → UNDODISIN 05-29 17:30
PROVIDERS: ADMIT Obstetrics & Gynecology; ATTEND Obstetrics & Gynecology
PROC: 10E0XZZ Delivery of Products of Conception, External Approach (ICD-10-PCS; principal; 2020-05-28)
PROC: 0KQM0ZZ Repair Perineum Muscle, Open Approach (ICD-10-PCS; 2020-05-28)
PROC: 3E0R3BZ Introduction of Anesthetic Agent into Spinal Canal, Percutaneous Approach (ICD-10-PCS; 2020-05-28)
DX: O70.1 Second degree perineal laceration during delivery (principal); Z37.0 Single live birth; Z3A.38 38 weeks gestation of pregnancy; Z20.828 Contact with and (suspected) exposure to other viral communicable diseases
CPT/HCPCS: 01967; 36415; 51701; 51702; 59025; 59409; 85025; 86592; 86850; 86900; 86901; A9270-GY; J2300; J2405; J2590; J3010; J3490; J7120; U0002

== ENCOUNTER 2020-12-16 18:46 | Emergency (ER) | payer MEDICAID ==
--- NOTE | 2020-12-16 19:28 | EDM.PDOC ---
ED HPI GENERAL MEDICAL PROBLEM - General Chief Complaint: General Stated Complaint: LOW BP/SENT BY [facility] Time Seen by Provider: 12/16/20 18:57 Source of Information: Reports: Patient, Family () History Limitations: Reports: No Limitations - History of Present Illness INITIAL COMMENTS - FREE TEXT/NARRATIVE: Mrs. Fulton is a very pleasant 20-year-old woman who is 7 weeks, 1 day gestation by ultrasound dated 12/08/2020, her second , who states that she has been feeling tired, fatigued, dizzy, and nauseated on and off for about a week. She states that she checked her own blood pressure at home today, finding it to be 102/44, therefore she went to the walk-in clinic. Her vitals were apparently normal at the walk-in clinic, however, the triage nurse, who called over to [facility], was told that the patient was directed here because they do not have an on-call SALES ASSOCIATE. It is not clear why they would have needed to have talked to an SALES ASSOCIATE. Here in the ED, the patient is found to be hemodynamically stable, afebrile, saturating 100% on room air. Other than the 1 week of intermittent tiredness, fatigue, dizziness, and nausea, the patient denies having a recent fever, chills, sore throat, ear pain, nasal or sinus congestion, cough, dyspnea, chest pain, palpitations, vomiting, constipation, diarrhea, abdominal pain, urinary symptoms, recent weight gain or weight loss, recent bloody bowel movements or black bowel movements, recent joint aches, headaches, or rashes. No recent vaginal bleeding. The patient states that she was just started on Zofran today, and that she has not vomited since taking it. The patient's PCP is Alana Mccarthy NP. Her SALES ASSOCIATE is Dr. Katelyn Gomez. She has not received an influenza vaccine this season, and declined an offer to get one here in the ED. - Related Data Allergies Allergy/AdvReac Type Severity Reaction Status Date / Time No Known Allergies Allergy Verified 12/16/20 19:00 Home Meds: Home Meds Escitalopram [Lexapro] 10 mg PO DAILY 12/16/20 [History] Ondansetron [Zofran] 4 mg PO Q6H PRN 12/16/20 [History] Pnv No.95/Ferrous Fum/Folic AC [ Caplet] 1 each PO DAILY 12/16/20 [History] Past Medical History : 2 Para: 1 Psychiatric History: Reports: Anxiety, Depression - Past Surgical History HEENT Surgical History: Reports: Other (See Below) (Cleft lip and palate repair) Social & Family History - Tobacco Use Tobacco Use Status *Q: Never Tobacco User - Caffeine Use Caffeine Use: Reports: None - Alcohol Use Alcohol Use History: Yes Alcohol Use Frequency: Socially (when not ) - Recreational Drug Use Recreational Drug Use: No - Living Situation & Occupation Living situation: Reports: , with Spouse, with Family (1 child) Occupation: Unemployed ED ROS GENERAL - Review of Systems Review Of Systems: Comprehensive ROS is negative, except as noted in HPI. ED EXAM, GENERAL - Physical Exam Exam: See Below Exam Limited By: No Limitations General Appearance: Alert, WD/WN, No Apparent Distress Eye Exam: Bilateral Eye: EOMI, Normal Inspection Ears: Normal External Exam, Hearing Grossly Normal Nose: Normal Inspection Throat/Mouth: Normal Inspection, Normal Lips, Normal Voice, No Airway Compromise Head: Atraumatic, Normocephalic Neck: Normal Inspection, Full Range of Motion Respiratory/Chest: No Respiratory Distress, Lungs Clear, Normal Breath Sounds, No Accessory Muscle Use Cardiovascular: Normal Peripheral Pulses, Regular Rate, Rhythm, No Edema, No Gallop, No JVD, No Murmur, No Rub Peripheral Pulses: 3+: Radial (L), Radial (R) GI/Abdominal: Normal Bowel Sounds, Soft, Non-Tender, No Organomegaly, No Distention, No Abnormal Bruit, No Mass Back Exam: Normal Inspection, Full Range of Motion, NT Extremities: Normal Inspection, Normal Range of Motion, No Pedal Edema, Normal Capillary Refill Neurological: Alert, Oriented, Normal Cognition, No Motor/Sensory Deficits Psychiatric: Normal Affect Skin Exam: Warm, Dry, Intact, Normal Color, No Rash Course - Vital Signs Last Recorded V/S: Last Vital Signs Temp 36.5 C 12/16/20 18:57 Pulse 89 12/16/20 19:40 Resp 18 12/16/20 18:57 BP 129/72 12/16/20 19:40 Pulse Ox 100 12/16/20 19:40 Orthostatic Blood Pressure [ 103/75 Standing] Orthostatic Blood Pressure [ 110/73 Sitting] Orthostatic Blood Pressure [ 105/65 Supine] - Re-Assessments/Exams Free Text/Narrative Re-Assessment/Exam: 12/16/20 19:22 As above, patient has been feeling tired, fatigued, dizzy and nauseated on and off for the past week, then found her BP to be depressed at 102/44 at home, therefore went to the walk-in clinic, where her vital signs were found to be normal, however, she was directed here because there is no on-call SALES ASSOCIATE. Why they needed to talk to an SALES ASSOCIATE is not clear. Here in the ED, the patient is again found to be hemodynamically stable, and her physical exam is entirely benign. I have ordered orthostatics. 12/16/20 19:29 The patient is not orthostatic. 12/16/20 19:31 Orthostatic results discussed with the patient and her . I am not recommending any work-up at this time. She may take the previously prescribed Zofran to help with her nausea, and stay adequately hydrated with Gatorade or Powerade. She may then follow-up with Dr. Gomez as needed. The patient is agreeable with this plan Departure - Departure Time of Disposition: 19:31 Disposition: Home, Self-Care 01 Condition: Good Clinical Impression: Qualifiers: Weeks of gestation: 9 weeks Qualified Code(s): Z3A.09 - 9 weeks gestation of - Discharge Information *PRESCRIPTION DRUG MONITORING PROGRAM REVIEWED*: Not Applicable *COPY OF PRESCRIPTION DRUG MONITORING REPORT IN PATIENT JOSUÉ: Not Applicable Instructions: Care Referrals: Alana Mccarthy NP [Primary Care Provider] - Katelyn Gomez MD [Physician] - Forms: ED Department Discharge Additional Instructions: You were seen in the emergency room after failing tired, fatigued, dizzy, and nauseated on and off for 1 week, then finding a low blood pressure at home. Here in the ED, your blood pressure and heart rate maintained themselves between lying and standing, indicating that you are not dehydrated. No further work-up was recommended. We recommend that you take the Zofran previously is prescribed to you to help with your nausea, and stay adequately hydrated. Gatorade or Powerade are best. Please follow-up with your SALES ASSOCIATE, Dr. Katelyn Gomez, as needed. If any other problems, please do not hesitate to return to the ER. Sepsis Event Note (ED) - Evaluation Sepsis Screening Result: No Definite Risk - Focused Exam Vital Signs: Vital Signs Temp Pulse Resp BP Pulse Ox 12/16/20 19:40 89 129/72 100 12/16/20 18:57 36.5 C 81 18 109/71 100
== END 2020-12-16 19:42 | disposition home or self-care (01) ==
LOC: JD.ED 18:46
DX: O99.891 Other specified diseases and conditions complicating pregnancy (principal); R42 Dizziness and giddiness; R53.83 Other fatigue; R11.0 Nausea; Z3A.09 9 weeks gestation of pregnancy
CPT/HCPCS: 99283

== ENCOUNTER 2021-02-16 21:36 | Emergency (ER) | payer MEDICAID ==
[2021-02-16] MEDS ORDERED: diphenhydrAMINE 50 MG/ML SDV IVPUSH ONE (22:04)
[2021-02-16] MEDS ORDERED: Metoclopramide 10 MG/2 ML SDV IVPUSH ONE (22:04)
--- NOTE | 2021-02-16 22:05 | EDM.PDOC ---
ED HPI GENERAL MEDICAL PROBLEM - General Chief Complaint: Gastrointestinal Problem Stated Complaint: NAUSEA/VOMITING/16 WKS Time Seen by Provider: 02/16/21 21:58 Source of Information: Reports: Patient History Limitations: Reports: No Limitations - History of Present Illness INITIAL COMMENTS - FREE TEXT/NARRATIVE: 20-year-old female presents to the ED with intractable nausea and vomiting for the last 36 hours. She last kept anything down about 9:00 yesterday morning. She has known to be 16 weeks gestation. Last known menstrual period was sometime in October. Ultrasound x1 has been completed by Dr. Gomez and a EDC has been set for August 03, 2021. Patient reports flecks of blood are coming up. She is having terrible heartburn associated with this . She feels lightheaded dizzy upon standing. No diarrhea. No fever or chills. She is using Zofran sublingual for nausea relief but today is not helping at all. Last tablet was taken 2 hours prior to coming to the ED. She has had a lot of nausea and vomiting throughout the starting around 7 weeks gestation. Is been getting better the last few weeks. Onset: Sudden Onset Date: 02/15/21 Onset Time: 09:00 Duration: Hour(s):, Constant, Other (Intractable nausea and vomiting) Location: Reports: Abdomen (Intractable nausea and vomiting. Upper epigastric abdominal discomfort. Plenty of heartburn as well.) Quality: Reports: Ache, Burning Severity: Moderate Improves with: Reports: None Worsens with: Reports: Eating Context: Reports: Other. Denies: Activity, Exercise (Drinking makes it worse.), Lifting, Sick Contact, Trauma Associated Symptoms: Reports: Loss of Appetite, Malaise, Nausea/Vomiting, Wea kness, Other. 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 Zofran sublingual. 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 Para: 0 (EDC has been set for August 03, 2021) Psychiatric History: Reports: Anxiety, Depression - Past Surgical History HEENT Surgical History: Reports: Other (See Below) Social & Family History - Family History Family Medical History: No Pertinent Family History - Tobacco Use Tobacco Use Status *Q: Unknown Ever Used Tobacco - Caffeine Use Caffeine Use: Reports: None - Living Situation & Occupation Living situation: Reports: , with Spouse, with Family (1 child) Occupation: Unemployed ED ROS GENERAL - Review of Systems Review Of Systems: See Below Constitutional: Reports: Malaise, Weakness, Fatigue, Decreased Appetite, Weight Loss. Denies: Fever, Chills HEENT: Reports: No Symptoms Respiratory: Reports: No Symptoms Cardiovascular: Reports: No Symptoms Endocrine: Reports: Fatigue GI/Abdominal: Reports: Abdominal Pain, Decreased Appetite (Epigastric pain from vomiting so much.) : Reports: Frequency. Denies: Dysuria Musculoskeletal: Reports: No Symptoms Skin: Reports: No Symptoms Neurological: Reports: Dizziness (Especially with standing), Weakness Psychiatric: Reports: No Symptoms Hematologic/Lymphatic: Reports: No Symptoms Immunologic: Reports: No Symptoms ED EXAM - Physical Exam Exam: See Below Exam Limited By: No Limitations General Appearance: Alert, WD/WN, No Apparent Distress, Other (Temperature is 35.9. Heart rate 85 and sinus respiratory is 15 with O2 sats of 99% room air BP 10/09/1972) Eye Exam: Bilateral Eye: Normal Inspection, PERRL (No blepharal pallor or scleral icterus identified.) Throat/Mouth: Other (Tongue is mildly dry and coated.) Head: Atraumatic, Normocephalic Neck: Normal Inspection, Supple, Non-Tender, Full Range of Motion. No: Lymphadenopathy (L), Lymphadenopathy (R) Respiratory/Chest: No Respiratory Distress, Lungs Clear, Normal Breath Sounds, No Accessory Muscle Use Cardiovascular: Normal Peripheral Pulses, Regular Rate, Rhythm, No Edema, No Gallop, No Murmur, No Rub GI/Abdominal Exam: Normal Bowel Sounds, Soft, Non-Tender, No Organomegaly, Pelvis Stable, Other (Gravid uterus felt at about 14 weeks gestation. Slightly below the midline between the umbilicus and the pubic symphysis.) Heart Tones: Present Extremities: Normal Inspection, Normal Range of Motion, Non-Tender, No Pedal Edema Neurological: Alert, Oriented (On Doppler only), CN II-XII Intact, Normal Cognition Psychiatric: Normal Affect, Normal Mood Skin Exam: Warm, Dry, Intact, Normal Color, No Rash Course - Vital Signs Last Recorded V/S: Last Vital Signs Temp 35.9 C L 02/16/21 21:53 Pulse 85 02/16/21 21:53 Resp 15 02/16/21 21:53 BP 114/73 02/16/21 21:53 Pulse Ox 99 02/16/21 21:53 - Orders/Labs/Meds Labs: Laboratory Tests 02/16/21 02/16/21 02/16/21 Range/Units 22:13 22:42 22:42 WBC 9.46 (3.98-10.04) K/mm3 RBC 3.74 L (3.98-5.22) M/mm3 Hgb 10.9 L D (11.2-15.7) gm/dl Hct 33.4 L (34.1-44.9) % MCV 89.3 (79.4-94.8) fl MCH 29.1 (25.6-32.2) pg MCHC 32.6 (32.2-35.5) g/dl RDW Std Deviation 43.1 (36.4-46.3) fL Plt Count 232 (182-369) K/mm3 MPV 9.1 L (9.4-12.3) fl Neut % (Auto) 73.2 H (34.0-71.1) % Lymph % (Auto) 17.9 L (19.3-51.7) % [place] % (Auto) 7.9 (4.7-12.5) % Eos % (Auto) 0.5 L (0.7-5.8) Baso % (Auto) 0.3 (0.1-1.2) % Neut # (Auto) 6.92 H (1.56-6.13) K/mm3 Lymph # (Auto) 1.69 (1.18-3.74) K/mm3 [place] # (Auto) 0.75 H (0.24-0.36) K/mm3 Eos # (Auto) 0.05 (0.04-0.36) K/mm3 Baso # (Auto) 0.03 (0.01-0.08) K/mm3 Sodium 138 (136-145) mEq/L Potassium 3.5 (3.5-5.1) mEq/L Chloride 102 (98-107) mEq/L Carbon Dioxide 25 (21-32) mEq/L Anion Gap 14.5 (5-15) BUN 7 (7-18) mg/dL Creatinine 0.7 (0.55-1.02) mg/dL Est Cr Clr Drug Dosing 113.43 mL/min Estimated GFR (MDRD) > 60 (>60) mL/min BUN/Creatinine Ratio 10.0 L (14-18) Glucose 190 H (70-99) mg/dL Calcium 8.5 (8.5-10.1) mg/dL Total Bilirubin 0.2 (0.2-1.0) mg/dL AST 16 (15-37) U/L ALT 16 (14-59) U/L Alkaline Phosphatase 59 (46-116) U/L Total Protein 6.1 L (6.4-8.2) g/dl Albumin 2.8 L (3.4-5.0) g/dl Globulin 3.3 gm/dL Albumin/Globulin Ratio 0.9 L (1-2) Urine Color Light yellow (Yellow) Urine Appearance Slt cloudy H (Clear) Urine pH 7.0 (5.0-8.0) Ur Specific Leslie 1.025 (1.005-1.030) Urine Protein Negative (Negative) Urine Glucose (UA) Negative (Negative) Urine Ketones Negative (Negative) Urine Occult Blood Negative (Negative) Urine Nitrite Negative (Negative) Urine Bilirubin Negative (Negative) Urine Urobilinogen 0.2 (0.2-1.0) Ur Leukocyte Esterase Negative (Negative) Meds: Medications Discontinued Medications Generic Name Dose Route Start Last Admin Trade Name Freq PRN Reason Stop Dose Admin Diphenhydramine HCl 12.5 mg 02/16/21 22:04 02/16/21 22:19 Diphenhydramine 50 Mg/Ml Sdv IVPUSH 02/16/21 22:05 12.5 mg ONETIME ONE Administration Dextrose/Lactated Ringer's 1,000 mls @ 999 mls/hr 02/16/21 22:15 02/16/21 22:18 Dextrose 5%-Lactated Ringers IV 999 mls/hr ASDIRECTED KEITH Administration Metoclopramide HCl 7.5 mg 02/16/21 22:04 02/16/21 22:19 Metoclopramide 10 Mg/2 Ml Sdv IVPUSH 02/16/21 22:05 7.5 mg ONETIME ONE Administration - Radiology Interpretation Free Text/Narrative:: 20-year-old female who is known to be 16 weeks presents to the ED with intractable nausea and vomiting since 9:00 yesterday morning. The has been complicated by a lot of heartburn and nausea and vomiting in the . It has been getting getting better the last few weeks. She feels lightheaded dizzy and weak upon standing. Zofran sublingual as not helping control the nausea. Plan IV D5 Ringer's lactate at open. Reglan 7.5 mg IV with Benadryl 12.5 mg IV since Zofran was last taken 12 2 hours ago. Urinalysis to be obtained. - Re-Assessments/Exams Free Text/Narrative Re-Assessment/Exam: 02/16/21 23:11 White count is normal at 9.46. The differential shows 73.2% neutrophils on the auto differential. Hemoglobin slightly low at 10.9 with hematocrit of 33.4. MCV is normal at 89.3. Platelet count is 232,000. Urinalysis shows slightly cloudy appearance but negative for leukocyte esterase. 02/16/21 23:17 Chemistry shows a sodium of 138 and a potassium of low normal at 3.5. Chloride 102 with a bicarb of 25. Anion gap is 14.5. BUN is 7 with a creatinine of 0.7 and GFR greater than 60. Glucose is 190. Calcium is 8.5 liver function normal total protein 6.1 with an albumin fraction of 2.8. Since she is not revealing an elevated anion gap she will need a liter of IV fluids. 02/16/21 23:19 patient is feeling better. She has been able to rest a bit. No further nausea or vomiting. She has completed a liter of D5 Ringer's lactate. She will be discharged to home. She feels she has adequate Zofran tablets at home. She will follow up with Dr. Olivares to feel any further problems occur. Departure - Departure Time of Disposition: 23:19 Disposition: Home, Self-Care 01 Condition: Fair Clinical Impression: Nausea and vomiting during prior to 22 weeks gestation - Discharge Information *PRESCRIPTION DRUG MONITORING PROGRAM REVIEWED*: Not Applicable *COPY OF PRESCRIPTION DRUG MONITORING REPORT IN PATIENT JOSUÉ: Not Applicable Instructions: Nausea and Vomiting, Adult, [id number] Referrals: Alana Mccarthy LINING VAMPER [Primary Care Provider] - Forms: ED Department Discharge Additional Instructions: Evaluation in the emergency room today in regards to persistent nausea and vomiting since 0900 hrs. You have had frequent bouts of nausea and vomiting during this . Currently estimated to be 16 weeks . Lab work done revealed no sign of urinary tract infection and no major metabolic abnormalities in your lab work. You received a liter of D5 Ringer's lactate at open with Reglan 7.5 mg IV and Benadryl 12.5 mg IV for nausea relief. Suggest home to bed to sleep. May continue Zofran 4 mg under the tongue every 4-6 hours as necessary for nausea relief. Follow-up with Dr. Gomez your SUPERANNUATION FUNDS MANAGER as planned. Return to the ED if similar problems occur. Sepsis Event Note (ED) - Evaluation Sepsis Screening Result: No Definite Risk - Focused Exam Vital Signs: Vital Signs Temp Pulse Resp BP Pulse Ox 02/16/21 21:53 35.9 C L 85 15 114/73 99
[2021-02-16] MEDS ORDERED: Dextrose 5%-Lactated Ringers 1,000 ML IV SCH (22:15)
== END 2021-02-16 23:29 | disposition home or self-care (01) ==
LOC: JD.ED 21:36
DX: O21.9 Vomiting of pregnancy, unspecified (principal); Z3A.16 16 weeks gestation of pregnancy
CPT/HCPCS: 36415; 80053; 81003; 85025; 96361; 96374; 96375; 99284; J1200; J2765; J7121; 99283

== ENCOUNTER 2021-07-27 07:10 | Inpatient (IN) | payer MEDICAID ==
[~2021-07-27 07:10] MED LIST: Bupivacaine 0.25% 10 ML SDV ONE
[2021-07-27] MEDS ORDERED: Acetaminophen 325 MG Tab PO PRN ×2 (07:13→19:50)
[2021-07-27] MEDS ORDERED: Sodium Chloride 0.9% 10 ML Syringe FLUSH PRN (07:13)
[2021-07-27] MEDS ORDERED: Ondansetron 4 MG/2 ML SDV IVPUSH PRN ×2 (07:13→08:36)
[2021-07-27] MEDS ORDERED: Nalbuphine 10 MG/1 ML Vial IVPUSH PRN (07:13)
[2021-07-27] MEDS ORDERED: Oxytocin/Lactated Ringers 10 UNIT/1,000 ML BAG IV SCH ×2 (07:15)
--- NOTE | 2021-07-27 07:18 | PCM.LDHP ---
L&D History of Present Illness - General Date of Service: 07/27/21 Admit Problem/Dx: Patient Status Order with Admit Dx/Problem 07/27/21 07:14 Patient Status [ADT] Routine Admission Diagnosis/Problem Admission Diagnosis/Problem Normal in third trimester Source of Information: Patient History Limitations: Reports: No Limitations - History of Present Illness Introduction:: Patient is a 20 y/o at 39 0/7 wks who presents for IOL for GODMA1. Doing well. No concerns. 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 LMP (Approximate): Psychiatric History: Reports: Anxiety, Depression - Past Surgical History HEENT Surgical History: Reports: Other (See Below) Other HEENT Surgeries/Procedures: Cleft lip/palate repair Social & Family History - Family History Family Medical History: No Pertinent Family History - Tobacco Use Tobacco Use Status *Q: Never Tobacco User - Caffeine Use Caffeine Use: Reports: None - Alcohol Use Alcohol Use History: No - Recreational Drug Use Recreational Drug Use: No - Living Situation & Occupation Living situation: Reports: , with Spouse, with Family (1 child) Occupation: Unemployed H&P Review of Systems - Review of Systems: Review Of Systems: See Below General: Reports: No Symptoms Pulmonary: Reports: No Symptoms Cardiovascular: Reports: No Symptoms Gastrointestinal: Reports: No Symptoms Genitourinary: Reports: No Symptoms Musculoskeletal: Reports: No Symptoms Psychiatric: Reports: No Symptoms Neurological: Reports: No Symptoms L&D Exam - Exam Exam: See Below - OB Specific Contraction Intensity: Irritability Movement: Active Heart Tones: Present Heart Tones per Min: 135 Heart Rate (FHR) Variability: Moderate (6-25 bpm) Presentation: Vertex - Montelongo Score Montelongo Score Cervix Position: Posterior Montelongo Score Consistency: Soft Montelongo Score Effacement: 51-70% Montelongo Score Dilation: 1-2 cm Montelongo Score 's Station: -2 Montelongo Score Total: 6 - Exam General: Alert, Oriented, Cooperative Lungs: Clear to Auscultation, Normal Respiratory Effort Cardiovascular: Regular Rate, Regular Rhythm GI/Abdominal Exam: Soft, Non-Tender Genitourinary: Normal external exam Extremities: Normal Inspection Skin: Warm, Dry, Intact - Problem List (1) 39 weeks gestation of SNOMED Code(s): 95806249 ICD Code: Z3A.39 - 39 WEEKS GESTATION OF Status: Acute Current Visit: Yes (2) Gestational diabetes, diet controlled SNOMED Code(s): 55585226, 696987036, 525353736 ICD Code: O24.410 - GESTATIONAL DIABETES MELLITUS IN , DIET CONTROLLED Status: Acute Current Visit: Yes Qualifiers: Trimester: third trimester Qualified Code(s): O24.410 - Gestational diabetes mellitus in , diet controlled Problem List Initiated/Reviewed/Updated: Yes Orders Last 24hrs: Active Orders 24 hr Category Date Time Status Patient Status [ADT] Routine ADT 07/27/21 07:14 Ordered Communication Order [RC] ASDIRECTED Care 07/27/21 07:14 Ordered Communication Order [RC] ASDIRECTED Care 07/27/21 07:14 Ordered Communication Order [RC] ASDIRECTED Care 07/27/21 07:14 Ordered Heart Tones [RC] ASDIRECTED Care 07/27/21 07:14 Ordered Monitoring [RC] INTERMITTENT Care 07/27/21 07:14 Ordered Non Stress Test [RC] PER UNIT ROUTINE Care 07/27/21 07:14 Ordered Notify Provider [RC] ASDIRECTED Care 07/27/21 07:14 Ordered Notify Provider [RC] PRN Care 07/27/21 07:14 Ordered Peripheral IV Care [RC] . DIRECTED Care 07/27/21 07:14 Ordered Up ad Kaia [RC] ASDIRECTED Care 07/27/21 07:14 Ordered Vaginal Exam [RC] ASDIRECTED Care 07/27/21 07:14 Ordered Vital Signs [RC] ASDIRECTED Care 07/27/21 07:14 Ordered Vital Signs [RC] PER UNIT ROUTINE Care 07/27/21 07:14 Ordered Regular Diet [DIET] Diet 07/27/21 Breakfast Ordered CBC W/O DIFF,HEMOGRAM [HEME] Routine Lab 07/27/21 07:13 Ordered CORONAVIRUS COVID-19 PURA [MOLEC] Stat Lab 07/27/21 07:16 Ordered RAPID PLASMA REAGIN,RPR [CHEM] Routine Lab 07/27/21 07:14 Ordered TYPE AND SCREEN [BBK] Routine Lab 07/27/21 07:13 Ordered Acetaminophen [TylenoL] Med 07/27/21 07:13 Ordered 650 mg PO Q4H PRN Lactated Ringers [Ringers, Lactated] 1,000 ml Med 07/27/21 07:15 Ordered IV ASDIRECTED Nalbuphine [Nubain] Med 07/27/21 07:13 Ordered 10 mg IVPUSH Q2H PRN Ondansetron [Zofran] Med 07/27/21 07:13 Ordered 4 mg IVPUSH Q4H PRN Oxytocin/Lactated Ringers [Pitocin in LR 10 Units/1,000 Med 07/27/21 07:15 Ordered ML] 10 unit in 1,000 ml IV .CONTINUOUS Oxytocin/Lactated Ringers [Pitocin in LR 10 Units/1,000 Med 07/27/21 07:15 Ordered ML] 10 unit in 1,000 ml IV TITRATE Sodium Chloride 0.9% [Saline Flush] Med 07/27/21 07:13 Ordered 10 ml FLUSH ASDIRECTED PRN Electronic Heart Tones Ext w TOCO [WOMSER] Oth 07/27/21 07:14 Ordered Routine Electronic Heart Tones Internal [WOMSER] Per Unit Oth 07/27/21 07:14 Ordered Routine Peripheral IV Insertion Adult [OM.PC] Routine Oth 07/27/21 07:14 Ordered Resuscitation Status Routine Resus Stat 07/27/21 07:13 Ordered Assessment/Plan Comment:: * Labs to be done * GBS negative, no need for antibiotics * Pitocin for IOL. AROM when able * Pain management per patient preference * Anticipate
[2021-07-27] MEDS: Lactated Ringers 1,000 ML IV SCH ×3 (08:24→15:23)
[2021-07-27] MEDS ORDERED: ePHEDrine 50 MG/ML SDV IVPUSH PRN (08:36)
[2021-07-27] MEDS ORDERED: fentaNYL 100 MCG/2 ML SDV EPIDUR PRN (08:36)
[2021-07-27] MEDS ORDERED: diphenhydrAMINE 50 MG/ML SDV IVPUSH PRN (08:36)
--- NOTE | 2021-07-27 08:41 | PCM.PREANE ---
Preanesthetic Assessment - Procedure Proposed Procedure: Epidural - Anesthesia/Transfusion/Family Hx Anesthesia History: Prior Anesthesia Without Reaction Family History of Anesthesia Reaction: No Transfusion History: No Prior Transfusion(s) Intubation History: Unknown - Review of Systems General: No Symptoms Pulmonary: No Symptoms Cardiovascular: No Symptoms Gastrointestinal: No Symptoms (GERD) Neurological: No Symptoms Other: Reports: Diabetes (Gestational DM), Sinus Problem (on zyrtec:seasonal allergies), Depression, Anxiety - Physical Assessment NPO Status Date: 07/27/21 NPO Status Time: 12:45 Vital Signs: HR: 86 Sat: 98% Temp: 36.6 B/P: 119/67 Resp: 18 Height: 1.65 m Weight: 72.575 kg ASA Class: 2 Mental Status: Alert & Oriented x3 (right nare pierced) Airway Class: Mallampati = 2 Dentition: Reports: Normal Dentition, Caries Thyro-Mental Finger Breadths: 3 Mouth Opening Finger Breadths: 3 ROM/Head Extension: Full Lungs: Clear to Auscultation, Normal Respiratory Effort Cardiovascular: Regular Rate, Regular Rhythm, No Murmurs - Lab Values: Laboratory Last Values WBC 8.70 K/mm3 (3.98-10.04) 07/27/21 07:28 RBC 4.24 M/mm3 (3.98-5.22) 07/27/21 07:28 Hgb 12.5 gm/dl (11.2-15.7) D 07/27/21 07:28 Hct 38.5 % (34.1-44.9) 07/27/21 07:28 MCV 90.8 fl (79.4-94.8) 07/27/21 07:28 MCH 29.5 pg (25.6-32.2) 07/27/21 07:28 MCHC 32.5 g/dl (32.2-35.5) 07/27/21 07:28 RDW Std Deviation 47.4 fL (36.4-46.3) H 07/27/21 07:28 Plt Count 175 K/mm3 (182-369) L 07/27/21 07:28 MPV 10.0 fl (9.4-12.3) 07/27/21 07:28 POC Glucose 102 mg/dL (70-99) H 07/27/21 08:23 SARS-CoV-2 RNA (PURA) Negative (NEGATIVE) 07/27/21 07:21 Above labs reviewed and noted and within acceptable ranges to proceed with epidural if desired. 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 Genitourinary History: Reports: UTI, Recurrent 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: Psychiatric History: Reports: Anxiety, Depression - Past Surgical History Other HEENT Surgeries/Procedures: Cleft lip/palate repair - SUBSTANCE USE Tobacco Use Status *Q: Never Tobacco User Recreational Drug Use History: No - HOME MEDS Home Medications: Home Meds Ondansetron [Zofran] 4 mg PO Q6H PRN 12/16/20 [History] Cetirizine [ZyrTEC] 10 mg PO DAILY PRN 07/27/21 [History] Ferrous Sulfate [Iron] 325 mg PO DAILY 07/27/21 [History] Vits #93/Iron Fum/FA [ Formula Tablet] 1 tab PO DAILY 07/27/21 [History] - CURRENT (IN HOUSE) MEDS Current Meds: Current Medications Acetaminophen (Acetaminophen 325 Mg Tab) 650 mg PO Q4H PRN PRN Reason: Pain (Mild 1-3) and fever Diphenhydramine HCl (Diphenhydramine 50 Mg/Ml Sdv) 25 mg IVPUSH Q6H PRN PRN Reason: pruritis Ephedrine Sulfate (Ephedrine 50 Mg/Ml Sdv) 5 mg IVPUSH ASDIRECTED PRN PRN Reason: Hypotension Fentanyl (Fentanyl 100 Mcg/2 Ml Sdv) 100 mcg EPIDUR Q3H PRN PRN Reason: Pain Fentanyl/Bupivacaine HCl (Bupivacaine/Fentanyl/Ns 100 Ml Bag) 100 ml EPIDUR ASDIRECTED KEITH Oxytocin/Lactated Ringer's (Pitocin In Lr 10 Units/1,000 Ml) 10 unit in 1,000 mls @ 12 mls/hr IV TITRATE KEITH; Protocol Last Admin: 07/27/21 08:25 Dose: 2 munits/min, 12 mls/hr Documented by: Oxytocin/Lactated Ringer's (Pitocin In Lr 10 Units/1,000 Ml) 10 unit in 1,000 mls @ 500 mls/hr IV .CONTINUOUS KEITH Lactated Ringer's (Ringers, Lactated) 1,000 mls @ 40 mls/hr IV ASDIRECTED [facility] Last Admin: 07/27/21 08:24 Dose: 40 mls/hr Documented by: Miscellaneous Medication (Phenylephrine Hcl In 0.9% Nacl 1 Mg/10 Ml Syringe) 0.1 mg IVPUSH Q10M PRN PRN Reason: Hypotension Nalbuphine HCl (Nalbuphine 10 Mg/1 Ml Vial) 10 mg IVPUSH Q2H PRN PRN Reason: Pain Ondansetron HCl (Ondansetron 4 Mg/2 Ml Sdv) 4 mg IVPUSH Q4H PRN PRN Reason: Nausea/Vomiting Ondansetron HCl (Ondansetron 4 Mg/2 Ml Sdv) 4 mg IVPUSH ONETIME PRN PRN Reason: Nausea/Vomiting Sodium Chloride (Sodium Chloride 0.9% 10 Ml Syringe) 10 ml FLUSH ASDIRECTED PRN PRN Reason: Keep Vein Open
[2021-07-27] MEDS ORDERED: Bupivacaine/fentaNYL/NS 100 ML Bag EPIDUR SCH (08:45)
--- NOTE | 2021-07-27 19:33 | PCM.DEL ---
L & D Note - General Info Date of Service: 07/27/21 - Delivery Note Labor: Induced by ARM, Induced by Oxytocin Delivery Outcome: Livebirth Infant Delivery Method: Spontaneous Vaginal Delivery-Single Infant Delivery Mode: Spontaneous Presentation: Left Occiput Anterior (GUADALUPE) Nuchal Cord: None Anesthesia Type: Epidural Amniotic Fluid Description: Clear Episiotomy Type: None Laceration: None Placenta: Intact, Spontaneous Cord: 3 Vessels Estimated Blood Loss: 100 Resuscitation Needed: Yes [place]: Bulb Syringe, Stimulated, Warmed, [place] Used, Warmer Used Delivery Comments (Free Text/Narrative):: Patient found to be complete and began pushing . With maternal pushing effort head delivered from an GUADALUPE presentation. No nuchal cord present. With gentle downward traction the shoulders and body delivered. placed on maternal abdomen. Cord clamped and cut. Cord blood obtained. Placenta allowed time to separate and expelled intact. Inspection of the perineum showed no lacerations - General Info Date of Service: 07/27/21 - Patient Data Vitals - Most Recent: Last Vital Signs Temp 36.6 C 07/27/21 07:14 Pulse 86 07/27/21 07:14 Resp 18 07/27/21 07:14 BP 119/67 07/27/21 07:14 Pulse Ox 98 07/27/21 07:14 Weight - Most Recent: 85.729 kg I&O - Last 24 Hours: Intake & Output 07/27/21 07/27/21 07/27/21 06:59 14:59 22:59 Intake Total 0 Balance 0 Lab Results Last 24 Hours: Laboratory Results - last 24 hr 07/27/21 07/27/21 07/27/21 Range/Units : 07:28 07:28 WBC 8.70 (3.98-10.04) K/mm3 RBC 4.24 (3.98-5.22) M/mm3 Hgb 12.5 D (11.2-15.7) gm/dl Hct 38.5 (34.1-44.9) % MCV 90.8 (79.4-94.8) fl MCH 29.5 (25.6-32.2) pg MCHC 32.5 (32.2-35.5) g/dl RDW Std Deviation 47.4 H (36.4-46.3) fL Plt Count 175 L (182-369) K/mm3 MPV 10.0 (9.4-12.3) fl POC Glucose (70-99) mg/dL SARS-CoV-2 RNA (PURA) Negative (NEGATIVE) Blood Type O POSITIVE Gel Antibody Screen Negative 07/27/21 07/27/21 07/27/21 Range/Units 08:23 12:05 16:07 WBC (3.98-10.04) K/mm3 RBC (3.98-5.22) M/mm3 Hgb (11.2-15.7) gm/dl Hct (34.1-44.9) % MCV (79.4-94.8) fl MCH (25.6-32.2) pg MCHC (32.2-35.5) g/dl RDW Std Deviation (36.4-46.3) fL Plt Count (182-369) K/mm3 MPV (9.4-12.3) fl POC Glucose 102 H 102 H 87 (70-99) mg/dL SARS-CoV-2 RNA (PURA) (NEGATIVE) Blood Type Gel Antibody Screen 07/27/21 Range/Units 18:05 WBC (3.98-10.04) K/mm3 RBC (3.98-5.22) M/mm3 Hgb (11.2-15.7) gm/dl Hct (34.1-44.9) % MCV (79.4-94.8) fl MCH (25.6-32.2) pg MCHC (32.2-35.5) g/dl RDW Std Deviation (36.4-46.3) fL Plt Count (182-369) K/mm3 MPV (9.4-12.3) fl POC Glucose 97 (70-99) mg/dL SARS-CoV-2 RNA (PURA) (NEGATIVE) Blood Type Gel Antibody Screen Med Orders - Current: Current Medications Acetaminophen (Acetaminophen 325 Mg Tab) 650 mg PO Q4H PRN PRN Reason: Pain (Mild 1-3) and fever Diphenhydramine HCl (Diphenhydramine 50 Mg/Ml Sdv) 25 mg IVPUSH Q6H PRN PRN Reason: pruritis Ephedrine Sulfate (Ephedrine 50 Mg/Ml Sdv) 5 mg IVPUSH ASDIRECTED PRN PRN Reason: Hypotension Fentanyl (Fentanyl 100 Mcg/2 Ml Sdv) 100 mcg EPIDUR Q3H PRN PRN Reason: Pain Last Admin: 07/27/21 15:22 Dose: 100 mcg Documented by: Fentanyl/Bupivacaine HCl (Bupivacaine/Fentanyl/Ns 100 Ml Bag) 100 ml EPIDUR ASDIRECTED COUNT INCLUDES THE [facility] Last Admin: 07/27/21 15:23 Dose: 100 ml Documented by: Oxytocin/Lactated Ringer's (Pitocin In Lr 10 Units/1,000 Ml) 10 unit in 1,000 mls @ 12 mls/hr IV TITRATE KEITH; Protocol Last Titration: 07/27/21 16:22 Dose: 12 munits/min, 72 mls/hr Documented by: Oxytocin/Lactated Ringer's (Pitocin In Lr 10 Units/1,000 Ml) 10 unit in 1,000 mls @ 500 mls/hr IV .CONTINUOUS KEITH Lactated Ringer's (Ringers, Lactated) 1,000 mls @ 40 mls/hr IV ASDIRECTED COUNT INCLUDES THE [facility] Last Admin: 07/27/21 15:23 Dose: 40 mls/hr Documented by: Miscellaneous Medication (Phenylephrine Hcl In 0.9% Nacl 1 Mg/10 Ml Syringe) 0. 1 mg IVPUSH Q10M PRN PRN Reason: Hypotension Nalbuphine HCl (Nalbuphine 10 Mg/1 Ml Vial) 10 mg IVPUSH Q2H PRN PRN Reason: Pain Ondansetron HCl (Ondansetron 4 Mg/2 Ml Sdv) 4 mg IVPUSH Q4H PRN PRN Reason: Nausea/Vomiting Ondansetron HCl (Ondansetron 4 Mg/2 Ml Sdv) 4 mg IVPUSH ONETIME PRN PRN Reason: Nausea/Vomiting Sodium Chloride (Sodium Chloride 0.9% 10 Ml Syringe) 10 ml FLUSH ASDIRECTED PRN PRN Reason: Keep Vein Open - Exam Urinary Catheter Total Time: 0Days 0Hours - Problem List & Annotations (1) 39 weeks gestation of SNOMED Code(s): 12885109 Code(s): Z3A.39 - 39 WEEKS GESTATION OF Status: Acute Current Visit: Yes (2) Gestational diabetes, diet controlled SNOMED Code(s): 22421980, 867048008, 905817426 Code(s): O24.410 - GESTATIONAL DIABETES MELLITUS IN , DIET CONTROLLED Status: Acute Current Visit: Yes Qualifiers: Trimester: third trimester Qualified Code(s): O24.410 - Gestational diabetes mellitus in , diet controlled (3) Vaginal delivery SNOMED Code(s): 260192051 Code(s): O80 - ENCOUNTER FOR FULL-TERM UNCOMPLICATED DELIVERY Status: Acute Current Visit: No - Problem List Review Problem List Initiated/Reviewed/Updated: Yes - My Orders Last 24 Hours: My Active Orders 07/27/21 Breakfast Regular Diet [DIET] 07/27/21 07:13 Acetaminophen [TylenoL] 650 mg PO Q4H PRN Nalbuphine [Nubain] 10 mg IVPUSH Q2H PRN Ondansetron [Zofran] 4 mg IVPUSH Q4H PRN Sodium Chloride 0.9% [Saline Flush] 10 ml FLUSH ASDIRECTED PRN Resuscitation Status Routine 07/27/21 07:14 Patient Status [ADT] Routine Communication Order [RC] ASDIRECTED Communication Order [RC] ASDIRECTED Communication Order [RC] ASDIRECTED Heart Tones [RC] ASDIRECTED Monitoring [RC] INTERMITTENT Non Stress Test [RC] PER UNIT ROUTINE Notify Provider [RC] ASDIRECTED Notify Provider [RC] PRN Up ad Kaia [RC] ASDIRECTED Vaginal Exam [RC] ASDIRECTED Vital Signs [RC] ASDIRECTED Electronic Heart Tones Ext w TOCO [WOMSER] Routine Electronic Heart Tones Internal [WOMSER] Per Unit Routine Peripheral IV Insertion Adult [OM.PC] Routine 07/27/21 07:15 Lactated Ringers [Ringers, Lactated] 1,000 ml IV ASDIRECTED Oxytocin/Lactated Ringers [Pitocin in LR 10 Units/1,000 ML] 10 unit in 1,000 ml IV .CONTINUOUS Oxytocin/Lactated Ringers [Pitocin in LR 10 Units/1,000 ML] 10 unit in 1,000 ml IV TITRATE 07/27/21 07:23 Blood Glucose Check, Bedside [RC] Q4HR 07/27/21 07:28 RAPID PLASMA REAGIN,RPR [CHEM] Routine - Assessment Assessment:: PPD#0 - Plan Plan:: * Routine cares * Breast feeding * Fasting blood sugar in AM. 2hr GTT in 6 weeks * Discharge home in 1-2 days
[2021-07-27] MEDS ORDERED: Docusate Sodium 100 MG Cap PO PRN (19:50)
[2021-07-27] MEDS ORDERED: Witch Hazel Medicated Pads 40/Jar TOP PRN (19:50)
[2021-07-27] MEDS ORDERED: Benzocaine/Menthol 20%-0.5% Spray 78 GM Cannister TOP PRN (19:50)
[2021-07-27] MEDS: Ibuprofen 600 MG Tab PO PRN (21:16)
[2021-07-28] MEDS: Ibuprofen 600 MG Tab PO PRN ×3 (06:24→21:35)
--- NOTE | 2021-07-28 06:37 | PCM.PNPP ---
- General Info Date of Service: 07/28/21 Functional Status: Reports: Pain Controlled, Tolerating Diet, Ambulating, Urinating - Review of Systems General: Reports: No Symptoms Pulmonary: Reports: No Symptoms Cardiovascular: Reports: No Symptoms Gastrointestinal: Reports: No Symptoms Genitourinary: Reports: No Symptoms Musculoskeletal: Reports: No Symptoms - General Info Date of Service: 07/28/21 - Patient Data Vital Signs - Most Recent: Last Vital Signs Temp 36.3 C 07/28/21 04:41 Pulse 62 07/28/21 04:41 Resp 15 07/28/21 04:41 BP 113/70 07/28/21 04:41 Pulse Ox 98 07/28/21 04:41 Weight - Most Recent: 85.729 kg I&O - Last 24 Hours: Intake & Output 07/27/21 07/27/21 07/28/21 14:59 22:59 06:59 Intake Total 0 Output Total 350 158 Balance -350 -158 Lab Results - Last 24 Hours: Laboratory Results - last 24 hr 07/27/21 07/27/21 07/27/21 Range/Units 07:21 07:28 07:28 WBC 8.70 (3.98-10.04) K/mm3 RBC 4.24 (3.98-5.22) M/mm3 Hgb 12.5 D (11.2-15.7) gm/dl Hct 38.5 (34.1-44.9) % MCV 90.8 (79.4-94.8) fl MCH 29.5 (25.6-32.2) pg MCHC 32.5 (32.2-35.5) g/dl RDW Std Deviation 47.4 H (36.4-46.3) fL Plt Count 175 L (182-369) K/mm3 MPV 10.0 (9.4-12.3) fl POC Glucose (70-99) mg/dL RPR (NONREACTIVE) SARS-CoV-2 RNA (PURA) Negative (NEGATIVE) Blood Type O POSITIVE Gel Antibody Screen Negative 07/27/21 07/27/21 07/27/21 Range/Units 07:28 08:23 12:05 WBC (3.98-10.04) K/mm3 RBC (3.98-5.22) M/mm3 Hgb (11.2-15.7) gm/dl Hct (34.1-44.9) % MCV (79.4-94.8) fl MCH (25.6-32.2) pg MCHC (32.2-35.5) g/dl RDW Std Deviation (36.4-46.3) fL Plt Count (182-369) K/mm3 MPV (9.4-12.3) fl POC Glucose 102 H 102 H (70-99) mg/dL RPR Non-reactive (NONREACTIVE) SARS-CoV-2 RNA (PURA) (NEGATIVE) Blood Type Gel Antibody Screen 07/27/21 07/27/21 07/28/21 Range/Units 16:07 18:05 06:16 WBC (3.98-10.04) K/mm3 RBC (3.98-5.22) M/mm3 Hgb (11.2-15.7) gm/dl Hct (34.1-44.9) % MCV (79.4-94.8) fl MCH (25.6-32.2) pg MCHC (32.2-35.5) g/dl RDW Std Deviation (36.4-46.3) fL Plt Count (182-369) K/mm3 MPV (9.4-12.3) fl POC Glucose 87 97 79 (70-99) mg/dL RPR (NONREACTIVE) SARS-CoV-2 RNA (PURA) (NEGATIVE) Blood Type Gel Antibody Screen Med Orders - Current: Current Medications Acetaminophen (Acetaminophen 325 Mg Tab) 650 mg PO Q4H PRN PRN Reason: mild pain or fever Benzocaine/Menthol (Benzocaine/Menthol 20%-0.5% [place] 78 Gm Cannister) 0 gm TOP ASDIRECTED PRN PRN Reason: Perineal Comfort Measure Last Admin: 07/27/21 21:17 Dose: 1 can Documented by: Docusate Sodium (Docusate Sodium 100 Mg Cap) 100 mg PO BID PRN PRN Reason: Constipation Ibuprofen (Ibuprofen 600 Mg Tab) 600 mg PO Q6H PRN PRN Reason: Mild pain or fever Last Admin: 07/28/21 06:24 Dose: 600 mg Documented by: Chandrakant Sebastian (Chandrakant Sebastian Medicated Pads 40/Jar) 1 pad TOP ASDIRECTED PRN PRN Reason: Perineal Comfort Measure Last Admin: 07/27/21 21:16 Dose: 1 tub Documented by: Discontinued Medications Acetaminophen (Acetaminophen 325 Mg Tab) 650 mg PO Q4H PRN PRN Reason: Pain (Mild 1-3) and fever Diphenhydramine HCl (Diphenhydramine 50 Mg/Ml Sdv) 25 mg IVPUSH Q6H PRN PRN Reason: pruritis Ephedrine Sulfate (Ephedrine 50 Mg/Ml Sdv) 5 mg IVPUSH ASDIRECTED PRN PRN Reason: Hypotension Fentanyl (Fentanyl 100 Mcg/2 Ml Sdv) 100 mcg EPIDUR Q3H PRN PRN Reason: Pain Last Admin: 07/27/21 15:22 Dose: 100 mcg Documented by: Fentanyl/Bupivacaine HCl (Bupivacaine/Fentanyl/Ns 100 Ml Bag) 100 ml EPIDUR ASDIRECTED KEITH Last Admin: 07/27/21 15:23 Dose: 100 ml Documented by: Oxytocin/Lactated Ringer's (Pitocin In Lr 10 Units/1,000 Ml) 10 unit in 1,000 mls @ 12 mls/hr IV TITRATE KEITH; Protocol Last Titration: 07/27/21 16:22 Dose: 12 munits/min, 72 mls/hr Documented by: Oxytocin/Lactated Ringer's (Pitocin In Lr 10 Units/1,000 Ml) 10 unit in 1,000 mls @ 500 mls/hr IV .CONTINUOUS KEITH Last Admin: 07/27/21 19:49 Dose: 500 mls/hr Documented by: Lactated Ringer's (Ringers, Lactated) 1,000 mls @ 40 mls/hr IV ASDIRECTED KEITH Last Admin: 07/27/21 15:23 Dose: 40 mls/hr Documented by: Miscellaneous Medication (Phenylephrine Hcl In 0.9% Nacl 1 Mg/10 Ml Syringe) 0.1 mg IVPUSH Q10M PRN PRN Reason: Hypotension Nalbuphine HCl (Nalbuphine 10 Mg/1 Ml Vial) 10 mg IVPUSH Q2H PRN PRN Reason: Pain Ondansetron HCl (Ondansetron 4 Mg/2 Ml Sdv) 4 mg IVPUSH Q4H PRN PRN Reason: Nausea/Vomiting Ondansetron HCl (Ondansetron 4 Mg/2 Ml Sdv) 4 mg IVPUSH ONETIME PRN PRN Reason: Nausea/Vomiting Sodium Chloride (Sodium Chloride 0.9% 10 Ml Syringe) 10 ml FLUSH ASDIRECTED PRN PRN Reason: Keep Vein Open - Interaction Infant Disposition, : [place] in Room with Family Interaction: Holding Infant Feeding: Attempted ; Nursed Fair/Poor Support Person: - Recovery Exam Fundal Tone: Firm Fundal Level: 1 Fingerbreadths Below Umbilicus Fundal Placement: Midline Lochia Amount: Small Lochia Color: Rubra/Red Perineum Description: Intact, Minimal Bruising/Swelling Bladder Status: Voiding - Exam General: Alert, Oriented, Cooperative GI/Abdominal Exam: Soft, Non-Tender - Problem List & Annotations (1) 39 weeks gestation of SNOMED Code(s): 39895747 Code(s): Z3A.39 - 39 WEEKS GESTATION OF Status: Acute Current Visit: Yes (2) Gestational diabetes, diet controlled SNOMED Code(s): 18830551, 759732418, 869127110 Code(s): O24.410 - GESTATIONAL DIABETES MELLITUS IN , DIET CONTROLLED Status: Acute Current Visit: Yes Qualifiers: Trimester: third trimester Qualified Code(s): O24.410 - Gestational diabetes mellitus in , diet controlled (3) Vaginal delivery SNOMED Code(s): 434506851 Code(s): O80 - ENCOUNTER FOR FULL-TERM UNCOMPLICATED DELIVERY Status: Acute Current Visit: No - Problem List Review Problem List Initiated/Reviewed/Updated: Yes - My Orders Last 24 Hours: My Active Orders 07/27/21 07:13 Resuscitation Status Routine 07/27/21 Dinner Regular Diet [DIET] 07/27/21 19:50 Acetaminophen [TylenoL] 650 mg PO Q4H PRN Benzocaine/Menthol [Dermoplast Pain Relief 20%-0.5% [place]] See Dose Instructions TOP ASDIRECTED PRN Docusate Sodium [Colace] 100 mg PO BID PRN Ibuprofen [Motrin] 600 mg PO Q6H PRN witch [place] [Tucks] 1 pad TOP ASDIRECTED PRN Heat Therapy [OM.PC] PRN 07/27/21 19:50 Activity as Tolerated [RC] PER UNIT ROUTINE Vital Signs [RC] 03,09,15,21 Assess Lochia [WOMSER] Per Unit Routine Assess Uterine Involution [WOMSER] Per Unit Routine Breast Pump [WOMSER] Per Unit Routine Ice Therapy [OM.PC] Per Unit Routine Perineal Care [OM.PC] Per Unit Routine Peripheral IV Discontinue [OM.PC] Routine Sitz Bath [OM.PC] Per Unit Routine 07/28/21 05:00 Blood Glucose Check, Bedside [RC] ONETIME 07/28/21 06:37 Ready for Discharge [RC] PER UNIT ROUTINE 07/28/21 19:50 Heat Therapy [OM.PC] PRN - Assessment Assessment:: PPD#1 - Plan Plan:: * Routine cares * Breast feeding * Fasting blood sugar this AM appropriate. Plan 2hr GTT at 6 weeks * Discharge home today
--- NOTE | 2021-07-28 06:37 | PCM.DCSUM1 ---
Discharge Summary - Discharge Data Discharge Date: 07/28/21 Discharge Disposition: Home, Self-Care 01 Condition: Good - Referral to Home Health Primary Care Physician: Alana Mccarthy NP - Discharge Diagnosis/Problem(s) (1) 39 weeks gestation of SNOMED Code(s): 93459342 ICD Code: Z3A.39 - 39 WEEKS GESTATION OF Status: Acute Current Visit: Yes (2) Gestational diabetes, diet controlled SNOMED Code(s): 63978765, 254892904, 563975700 ICD Code: O24.410 - GESTATIONAL DIABETES MELLITUS IN , DIET CONTROLLED Status: Acute Current Visit: Yes Qualifiers: Trimester: third trimester Qualified Code(s): O24.410 - Gestational diabetes mellitus in , diet controlled (3) Vaginal delivery SNOMED Code(s): 040965667 ICD Code: O80 - ENCOUNTER FOR FULL-TERM UNCOMPLICATED DELIVERY Status: Ac prosper Current Visit: No - Patient Summary/Data Complications: None Consults: None Recommended Follow-up Testing/Procedures: Follow up in 3 weeks for check Hospital Course: 20 y/o at 39 0/7 wks who presented for IOL for GODMA1. Induction done with pitocin and AROM. Progressed well to complete dilation. Underwent an uncomplicated . See delivery note. did well and was discharged home on PPD#1 - Patient Instructions Diet: Regular Diet as Tolerated Activity: As Tolerated Activity, Other: Pelvic rest for 6 weeks Driving: May Drive Today Showering/Bathing: May Shower Showering/Bathing, Other: May Bathe Notify Provider of: Fever, Increased Pain, Swelling and Redness, Drainage, Nausea and/or Vomiting - Discharge Plan *PRESCRIPTION DRUG MONITORING PROGRAM REVIEWED*: No *COPY OF PRESCRIPTION DRUG MONITORING REPORT IN PATIENT JOSUÉ: No Home Medications: Home Meds Vits #93/Iron Fum/FA [ Formula Tablet] 1 tab PO DAILY 07/27/21 [History] Docusate Sodium [Colace] 100 mg PO BID PRN cap 07/28/21 [Rx] Ibuprofen [Motrin] 600 mg PO Q6H PRN tablet 07/28/21 [Rx] Referrals: Katelyn Gomez MD [Physician] - (3 weeks for check ) - Discharge Summary/Plan Comment DC Time >30 min.: No Total # of Minutes for Discharge Time: 15 - Patient Data Vitals - Most Recent: Last Vital Signs Temp 36.3 C 07/28/21 04:41 Pulse 62 07/28/21 04:41 Resp 15 07/28/21 04:41 BP 113/70 07/28/21 04:41 Pulse Ox 98 07/28/21 04:41 Weight - Most Recent: 85.729 kg I&O - Last 24 hours: Intake & Output 07/27/21 07/27/21 07/28/21 14:59 22:59 06:59 Intake Total 0 Output Total 350 158 Balance -350 -158 Lab Results - Last 24 hrs: Laboratory Results - last 24 hr 07/27/21 07/27/21 07/27/21 Range/Units 07:21 07:28 07:28 WBC 8.70 (3.98-10.04) K/mm3 RBC 4.24 (3.98-5.22) M/mm3 Hgb 12.5 D (11.2-15.7) gm/dl Hct 38.5 (34.1-44.9) % MCV 90.8 (79.4-94.8) fl MCH 29.5 (25.6-32.2) pg MCHC 32.5 (32.2-35.5) g/dl RDW Std Deviation 47.4 H (36.4-46.3) fL Plt Count 175 L (182-369) K/mm3 MPV 10.0 (9.4-12.3) fl POC Glucose (70-99) mg/dL RPR (NONREACTIVE) SARS-CoV-2 RNA (PURA) Negative (NEGATIVE) Blood Type O POSITIVE Gel Antibody Screen Negative 07/27/21 07/27/21 07/27/21 Range/Units 07:28 08:23 12:05 WBC (3.98-10.04) K/mm3 RBC (3.98-5.22) M/mm3 Hgb (11.2-15.7) gm/dl Hct (34.1-44.9) % MCV (79.4-94.8) fl MCH (25.6-32.2) pg MCHC (32.2-35.5) g/dl RDW Std Deviation (36.4-46.3) fL Plt Count (182-369) K/mm3 MPV (9.4-12.3) fl POC Glucose 102 H 102 H (70-99) mg/dL RPR Non-reactive (NONREACTIVE) SARS-CoV-2 RNA (PURA) (NEGATIVE) Blood Type Gel Antibody Screen 07/27/21 07/27/21 07/28/21 Range/Units 16:07 18:05 06:16 WBC (3.98-10.04) K/mm3 RBC (3.98-5.22) M/mm3 Hgb (11.2-15.7) gm/dl Hct (34.1-44.9) % MCV (79.4-94.8) fl MCH (25.6-32.2) pg MCHC (32.2-35.5) g/dl RDW Std Deviation (36.4-46.3) fL Plt Count (182-369) K/mm3 MPV (9.4-12.3) fl POC Glucose 87 97 79 (70-99) mg/dL RPR (NONREACTIVE) SARS-CoV-2 RNA (PURA) (NEGATIVE) Blood Type Gel Antibody Screen Med Orders - Current: Current Medications Acetaminophen (Acetaminophen 325 Mg Tab) 650 mg PO Q4H PRN PRN Reason: mild pain or fever Benzocaine/Menthol (Benzocaine/Menthol 20%-0.5% [place] 78 Gm Cannister) 0 gm TOP ASDIRECTED PRN PRN Reason: Perineal Comfort Measure Last Admin: 07/27/21 21:17 Dose: 1 can Documented by: Docusate Sodium (Docusate Sodium 100 Mg Cap) 100 mg PO BID PRN PRN Reason: Constipation Ibuprofen (Ibuprofen 600 Mg Tab) 600 mg PO Q6H PRN PRN Reason: Mild pain or fever Last Admin: 07/28/21 06:24 Dose: 600 mg Documented by: Chandrakant Sebastian (Chandrakant Sebastian Medicated Pads 40/Jar) 1 pad TOP ASDIRECTED PRN PRN Reason: Perineal Comfort Measure Last Admin: 07/27/21 21:16 Dose: 1 tub Documented by: Discontinued Medications Acetaminophen (Acetaminophen 325 Mg Tab) 650 mg PO Q4H PRN PRN Reason: Pain (Mild 1-3) and fever Diphenhydramine HCl (Diphenhydramine 50 Mg/Ml Sdv) 25 mg IVPUSH Q6H PRN PRN Reason: pruritis Ephedrine Sulfate (Ephedrine 50 Mg/Ml Sdv) 5 mg IVPUSH ASDIRECTED PRN PRN Reason: Hypotension Fentanyl (Fentanyl 100 Mcg/2 Ml Sdv) 100 mcg EPIDUR Q3H PRN PRN Reason: Pain Last Admin: 07/27/21 15:22 Dose: 100 mcg Documented by: Fentanyl/Bupivacaine HCl (Bupivacaine/Fentanyl/Ns 100 Ml Bag) 100 ml EPIDUR ASDIRECTED [facility] Last Admin: 07/27/21 15:23 Dose: 100 ml Documented by: Oxytocin/Lactated Ringer's (Pitocin In Lr 10 Units/1,000 Ml) 10 unit in 1,000 mls @ 12 mls/hr IV TITRATE KEITH; Protocol Last Titration: 07/27/21 16:22 Dose: 12 munits/min, 72 mls/hr Documented by: Oxytocin/Lactated Ringer's (Pitocin In Lr 10 Units/1,000 Ml) 10 unit in 1,000 mls @ 500 mls/hr IV .CONTINUOUS KEITH Last Admin: 07/27/21 19:49 Dose: 500 mls/hr Documented by: Lactated Ringer's (Ringers, Lactated) 1,000 mls @ 40 mls/hr IV ASDIRECTED [facility] Last Admin: 07/27/21 15:23 Dose: 40 mls/hr Documented by: Miscellaneous Medication (Phenylephrine Hcl In 0.9% Nacl 1 Mg/10 Ml Syringe) 0.1 mg IVPUSH Q10M PRN PRN Reason: Hypotension Nalbuphine HCl (Nalbuphine 10 Mg/1 Ml Vial) 10 mg IVPUSH Q2H PRN PRN Reason: Pain Ondansetron HCl (Ondansetron 4 Mg/2 Ml Sdv) 4 mg IVPUSH Q4H PRN PRN Reason: Nausea/Vomiting Ondansetron HCl (Ondansetron 4 Mg/2 Ml Sdv) 4 mg IVPUSH ONETIME PRN PRN Reason: Nausea/Vomiting Sodium Chloride (Sodium Chloride 0.9% 10 Ml Syringe) 10 ml FLUSH ASDIRECTED PRN PRN Reason: Keep Vein Open
--- NOTE | 2021-07-28 08:27 | PCM48HPAN ---
Post Anesthesia Note - EVALUATION WITHIN 48HRS OF ANESTHETIC Vital Signs in Normal Range: Yes Patient Participated in Evaluation: Yes Respiratory Function Stable: Yes Airway Patent: Yes Cardiovascular Function Stable: Yes Hydration Status Stable: Yes Pain Control Satisfactory: Yes Nausea and Vomiting Control Satisfactory: Yes Mental Status Recovered: Yes Vital Signs: Last Vital Signs Temp 97.3 F 07/28/21 04:41 Pulse 62 07/28/21 04:41 Resp 15 07/28/21 04:41 BP 113/70 07/28/21 04:41 Pulse Ox 98 07/28/21 04:41
--- NOTE | 2021-07-29 07:08 | PCM.PNPP ---
- General Info Date of Service: 07/29/21 Functional Status: Reports: Pain Controlled, Tolerating Diet, Ambulating, Urinating - Review of Systems General: Reports: No Symptoms Pulmonary: Reports: No Symptoms Cardiovascular: Reports: No Symptoms Gastrointestinal: Reports: No Symptoms Genitourinary: Reports: No Symptoms Musculoskeletal: Reports: No Symptoms - General Info Date of Service: 07/29/21 - Patient Data Vital Signs - Most Recent: Last Vital Signs Temp 36.2 C 07/29/21 03:28 Pulse 59 L 07/29/21 03:28 Resp 14 07/29/21 03:28 BP 120/62 07/29/21 03:28 Pulse Ox 99 07/29/21 03:28 Weight - Most Recent: 85.729 kg Med Orders - Current: Current Medications Acetaminophen (Acetaminophen 325 Mg Tab) 650 mg PO Q4H PRN PRN Reason: mild pain or fever Benzocaine/Menthol (Benzocaine/Menthol 20%-0.5% Basile 78 Gm Cannister) 0 gm TOP ASDIRECTED PRN PRN Reason: Perineal Comfort Measure Last Admin: 07/27/21 21:17 Dose: 1 can Documented by: Docusate Sodium (Docusate Sodium 100 Mg Cap) 100 mg PO BID PRN PRN Reason: Constipation Ibuprofen (Ibuprofen 600 Mg Tab) 600 mg PO Q6H PRN PRN Reason: Mild pain or fever Last Admin: 07/28/21 21:35 Dose: 600 mg Documented by: Chandrakant Sebastian (Chandrakant Sebastian Medicated Pads 40/Jar) 1 pad TOP ASDIRECTED PRN PRN Reason: Perineal Comfort Measure Last Admin: 07/27/21 21:16 Dose: 1 tub Documented by: Discontinued Medications Acetaminophen (Acetaminophen 325 Mg Tab) 650 mg PO Q4H PRN PRN Reason: Pain (Mild 1-3) and fever Diphenhydramine HCl (Diphenhydramine 50 Mg/Ml Sdv) 25 mg IVPUSH Q6H PRN PRN Reason: pruritis Ephedrine Sulfate (Ephedrine 50 Mg/Ml Sdv) 5 mg IVPUSH ASDIRECTED PRN PRN Reason: Hypotension Fentanyl (Fentanyl 100 Mcg/2 Ml Sdv) 100 mcg EPIDUR Q3H PRN PRN Reason: Pain Last Admin: 07/27/21 15:22 Dose: 100 mcg Documented by: Fentanyl/Bupivacaine HCl (Bupivacaine/Fentanyl/Ns 100 Ml Bag) 100 ml EPIDUR ASDIRECTED KEITH Last Admin: 07/27/21 15:23 Dose: 100 ml Documented by: Oxytocin/Lactated Ringer's (Pitocin In Lr 10 Units/1,000 Ml) 10 unit in 1,000 mls @ 12 mls/hr IV TITRATE KEITH; Protocol Last Titration: 07/27/21 16:22 Dose: 12 munits/min, 72 mls/hr Documented by: Oxytocin/Lactated Ringer's (Pitocin In Lr 10 Units/1,000 Ml) 10 unit in 1,000 mls @ 500 mls/hr IV .CONTINUOUS KEITH Last Admin: 07/27/21 19:49 Dose: 500 mls/hr Documented by: Lactated Ringer's (Ringers, Lactated) 1,000 mls @ 40 mls/hr IV ASDIRECTED KEITH Last Admin: 07/27/21 15:23 Dose: 40 mls/hr Documented by: Miscellaneous Medication (Phenylephrine Hcl In 0.9% Nacl 1 Mg/10 Ml Syringe) 0.1 mg IVPUSH Q10M PRN PRN Reason: Hypotension Nalbuphine HCl (Nalbuphine 10 Mg/1 Ml Vial) 10 mg IVPUSH Q2H PRN PRN Reason: Pain Ondansetron HCl (Ondansetron 4 Mg/2 Ml Sdv) 4 mg IVPUSH Q4H PRN PRN Reason: Nausea/Vomiting Ondansetron HCl (Ondansetron 4 Mg/2 Ml Sdv) 4 mg IVPUSH ONETIME PRN PRN Reason: Nausea/Vomiting Sodium Chloride (Sodium Chloride 0.9% 10 Ml Syringe) 10 ml FLUSH ASDIRECTED PRN PRN Reason: Keep Vein Open - Infant Interaction Disposition, : [place] in Room with Family Interaction: Holding Infant Feeding: Bottle Fed Infant Support Person: - Recovery Exam Fundal Tone: Firm Fundal Level: 2 Fingerbreadths Below Umbilicus Fundal Placement: Midline Lochia Amount: Scant, Small Lochia Color: Rubra/Red Perineum Description: Intact, Minimal Bruising/Swelling Bladder Status: Voiding Urinary Elimination: Voided - Exam General: Alert, Oriented, Cooperative GI/Abdominal Exam: Soft, Non-Tender - Problem List & Annotations (1) 39 weeks gestation of SNOMED Code(s): 87414499 Code(s): Z3A.39 - 39 WEEKS GESTATION OF Status: Acute Current Visit: Yes (2) Gestational diabetes, diet controlled SNOMED Code(s): 74794120, 464559044, 806925237 Code(s): O24.410 - GESTATIONAL DIABETES MELLITUS IN , DIET CONTROLLED Status: Acute Current Visit: Yes Qualifiers: Trimester: third trimester Qualified Code(s): O24.410 - Gestational diabetes mellitus in , diet controlled (3) Vaginal delivery SNOMED Code(s): 915186494 Code(s): O80 - ENCOUNTER FOR FULL-TERM UNCOMPLICATED DELIVERY Status: Acute Current Visit: No - Problem List Review Problem List Initiated/Reviewed/Updated: Yes - My Orders Last 24 Hours: My Active Orders 07/28/21 19:50 Heat Therapy [OM.PC] PRN 07/29/21 07:08 Ready for Discharge [RC] PER UNIT ROUTINE - Assessment Assessment:: PPD#2 - Plan Plan:: * Routine cares * Ended up having to stay overnight as baby not feeding well. Decided to switch to formula * Discharge home today
== END 2021-07-29 10:51 | disposition home or self-care (01) | DRG 807 ==
LOC: JD.OB 07:10 → OBSVTOIN 19:22 → JD.OB 19:23
PROVIDERS: ADMIT Obstetrics & Gynecology; ATTEND Obstetrics & Gynecology
PROC: 10E0XZZ Delivery of Products of Conception, External Approach (ICD-10-PCS; principal; 2021-07-27)
PROC: 10907ZC Drainage of Amniotic Fluid, Therapeutic from Products of Conception, Via Natural or Artificial Opening (ICD-10-PCS; 2021-07-27)
PROC: 3E033VJ Introduction of Other Hormone into Peripheral Vein, Percutaneous Approach (ICD-10-PCS; 2021-07-27)
PROC: 3E0R3BZ Introduction of Anesthetic Agent into Spinal Canal, Percutaneous Approach (ICD-10-PCS; 2021-07-27)
DX: O24.420 Gestational diabetes mellitus in childbirth, diet controlled (principal); Z37.0 Single live birth; Z3A.39 39 weeks gestation of pregnancy; Z79.899 Other long term (current) drug therapy; Z20.822 Contact with and (suspected) exposure to COVID-19
CPT/HCPCS: 01967; 36415; 51702; 59025; 59409; 82947; 85027; 86592; 86850; 86900; 86901; A9270-GY; J2590; J3010; J3490; J7120; U0002

== ENCOUNTER 2021-10-20 13:40 | Emergency (ER) | payer MEDICAID ==
[2021-10-20] MEDS ORDERED: Sodium Chloride 0.9% 10 ML Syringe FLUSH PRN (16:45)
[2021-10-20] MEDS ORDERED: Ondansetron 4 MG/2 ML SDV IVPUSH ONE (16:47)
[2021-10-20] MEDS ORDERED: Sodium Chloride 0.9% 1,000 ML IV STA (16:47)
[2021-10-20] MEDS ORDERED: HYDROmorphone 0.5 MG/0.5 ML Syringe IVPUSH ONE (16:47)
[2021-10-20] MEDS ORDERED: cefTRIAXone 2 GM in Sodium Chloride 0.9% 100 ML IV ONE (20:13)
== END 2021-10-20 21:34 | disposition home or self-care (01) ==
LOC: JD.ED 13:40
DX: N20.2 Calculus of kidney with calculus of ureter (principal); N39.0 Urinary tract infection, site not specified; R31.9 Hematuria, unspecified; Z20.822 Contact with and (suspected) exposure to COVID-19
CPT/HCPCS: 36415; 74177; 80053; 81001; 84703; 85025; 86140; 87086; 87635; 96365; 96375; 99284; J0696; J1170; J2405; J7030; U0002